=== PATIENT | female | born 1950 | race Caucasian/White ===

== ENCOUNTER 2017-03-31 10:09 | Outpatient (CLI) | payer MEDICARE, BC ==
[2017-03-31 11:43] LABS: Hematocrit 32.8 % (36.0-47.0); Mean Platelet Volume 8.4 fL (7.4-10.4); Red Blood Cell (RBC) Count 3.58 mill/uL (4.20-5.40); White Blood Cell (WBC) Count 10.1 thou/uL (4.8-10.8)
[2017-03-31 11:50] LABS: PTT 25.1 SEC (22.9-36.1); Prothrombin Time 11.8 SEC (12.0-14.7)
[2017-03-31 12:12] LABS: ALT (SGPT) 17 U/L (8-55); AST (SGOT) 18 U/L (5-34); Alkaline Phosphatase 118 U/L (40-150); Anion Gap 12 mmol/L (10-20); BUN (Urea Nitrogen) 32 mg/dL (9.8-20.1); Bilirubin, Total 0.3 mg/dL (0.2-1.2); Calc. Creatinine Clearance 0 mL/min (70-130); Calcium 9.5 mg/dL (7.8-10.44); Carbon Dioxide 23 mmol/L (23-31); Chloride 105 mmol/L (98-107); Cholesterol 221 mg/dl (< 200 Desired); Estimated GFR-MDRD 35; Protein, Total 6.5 g/dL (6.0-8.3)
== END 2017-03-31 10:10 | disposition home or self-care (01) ==
LOC: LABBT 10:09
PROVIDERS: ATTEND Internal Medicine Cardiovascular Disease
DX: Z01.818 Encounter for other preprocedural examination (principal); R07.9 Chest pain, unspecified
CPT/HCPCS: 80053; 80061; 85027; 85610; 85730; 93005; 93010

== ENCOUNTER 2017-04-04 05:42 | Day surgery (SDC) | payer BC, MEDICARE ==
[2017-03-31 10:38] VITALS: BMI 32.9
[2017-04-04] MEDS ORDERED: Nitroglycerin 100MG/250ML BOT 250 ML ONE (07:33)
[2017-04-04] MEDS ORDERED: Heparin 10,000 UNITS/1 ML VIAL ONE (07:33)
[2017-04-04] MEDS ORDERED: Midazolam HCl 2 mg/2 ml Vial ONE (07:44)
[2017-04-04] MEDS ORDERED: Fentanyl 100 MCG/2 ML VIAL ONE (07:44)
[2017-04-04] MEDS ORDERED: Iopamidol 370 76% 100 ML VIAL ONE (16:36)
== END 2017-04-04 11:50 | disposition home or self-care (01) ==
LOC: CCL 05:42
PROVIDERS: ATTEND Internal Medicine Cardiovascular Disease
DX: R07.9 Chest pain, unspecified (principal); R60.9 Edema, unspecified; M79.661 Pain in right lower leg; G47.30 Sleep apnea, unspecified; I10 Essential (primary) hypertension; E11.9 Type 2 diabetes mellitus without complications; E78.5 Hyperlipidemia, unspecified; K21.9 Gastro-esophageal reflux disease without esophagitis; Z79.82 Long term (current) use of aspirin; Z79.4 Long term (current) use of insulin; Z79.899 Other long term (current) drug therapy; Z90.710 Acquired absence of both cervix and uterus; Z98.890 Other specified postprocedural states
CPT/HCPCS: 36416; 93458; 99152; 99153; C1769; J0360; J1644; J2250; J3010

== ENCOUNTER 2018-01-11 14:11 | Emergency (ER) | payer BC, MEDICARE ==
[2018-01-11 16:05] LABS: #Basophils 0.1 thou/uL (0.0-0.2); #Eosinphils 0.4 thou/uL (0.0-0.7); #Lymphocytes 2.2 thou/uL (1.20-3.40); #Neutrophils 7.8 thou/uL (1.40-6.50); %Basophils 0.6 % (0.0-1.0); %Eosinophils 3.1 % (0.0-10.0); %Lymphocytes 19.2 % (21.0-51.0); %Monocytes 8.3 % (0.0-10.0); %Neutrophils 68.8 % (42.0-75.0); Hemoglobin 10.3 g/dL (12.0-16.0); Mean Corpuscular HGB CONC 34.6 g/dL (32.0-36.0); Mean Corpuscular Hemoglobin 31.2 pg (27.0-31.0); Mean Corpuscular Volume 90.2 fL (78.0-98.0); Mean Platelet Volume 8.2 fL (7.4-10.4); Platelet Count 354 thou/uL (130-400); RBC Distribution Width 11.7 % (11.5-14.5); White Blood Cell (WBC) Count 11.3 thou/uL (4.8-10.8)
[2018-01-11 16:27] LABS: ALT (SGPT) 9 U/L (8-55); AST (SGOT) 10 U/L (5-34); Albumin 3.2 g/dL (3.4-4.8); Alkaline Phosphatase 160 U/L (40-150); Anion Gap 15 mmol/L (10-20); BUN (Urea Nitrogen) 42 mg/dL (9.8-20.1); Bilirubin, Total 0.6 mg/dL (0.2-1.2); Calc. Creatinine Clearance 0 mL/min (70-130); Calcium 9.5 mg/dL (7.8-10.44); Carbon Dioxide 20 mmol/L (23-31); Chloride 109 mmol/L (98-107); Estimated GFR-MDRD 18; Globulin 3.2 g/dL (2.4-3.5); Glucose 167 mg/dL (80-115); Potassium 4.6 mmol/L (3.5-5.1); Protein, Total 6.4 g/dL (6.0-8.3); Sodium 139 mmol/L (136-145)
--- NOTE | 2018-01-11 17:22 | ULT ---
LEFT LOWER EXTREMITY DEEP VENOUS DUPLEX EXAM: Indications: Left lower extremity pain and edema. FINDINGS: Deep veins evaluated with color doppler, spectral analysis and compression. Deep veins of the left lower extremity show normal blood flow and compression. IMPRESSION: Negative left lower extremity venous duplex study. No evidence of DVT identified. POS: CASIMIRO
--- NOTE | 2018-01-11 17:23 | RAD ---
LEFT FOOT THREE VIEWS: History: Foot pain. FINDINGS: Prominent enthesophytes in the plantar calcaneus. The tarsals appear intact. Metatarsals and phalange s are intact. Mild degenerative change at the first MTP joint. IMPRESSION: Enthesophytes in the plantar calcaneus. Otherwise no acute osseous abnormality. POS: LELAND
== END 2018-01-11 18:47 | disposition home or self-care (01) ==
LOC: ERS 14:11 → EDUNIT# 14:11 → ERS 18:47
DX: L03.116 Cellulitis of left lower limb (principal); E11.9 Type 2 diabetes mellitus without complications; I10 Essential (primary) hypertension; K21.9 Gastro-esophageal reflux disease without esophagitis; E78.00 Pure hypercholesterolemia, unspecified; Z79.899 Other long term (current) drug therapy; Z79.82 Long term (current) use of aspirin; Z79.4 Long term (current) use of insulin
CPT/HCPCS: 80053; 85025

== ENCOUNTER 2018-02-12 09:13 | Outpatient (CLI) | payer BC, MEDICARE ==
--- NOTE | 2018-02-12 10:55 | ULT ---
BILATERAL RENAL ULTRASOUND COMPLETE: History: 67-year-old female with history of stage IV chronic kidney disease. FINDINGS: There is no identifiable right kidney. The left kidney measures 13.6 x 7.1 x 6.6 cm without evidence for hydronephrosis or perinephric proce ss. The bladder is unremarkable. A left ureteral jet was seen. IMPRESSION: No visualized right kidney. No left renal hydronephrosis. Unremarkable appearing somewhat incompletel y filled bladder. POS: C
== END 2018-02-12 09:14 | disposition home or self-care (01) ==
LOC: ULT 09:13
PROVIDERS: ATTEND Internal Medicine Nephrology
DX: N18.4 Chronic kidney disease, stage 4 (severe) (principal)
CPT/HCPCS: 76770

== ENCOUNTER 2018-10-27 04:39 | Inpatient (IN) | payer MEDICARE, BC ==
[2018-10-27] MEDS ORDERED: Ondansetron PF 4 MG/2 ML Vial ONE (05:15)
[2018-10-27] MEDS ORDERED: Labetalol HCl 100 MG/20 ML VIAL ONE (05:15)
[2018-10-27] MEDS ORDERED: Acetaminophen 500 MG TAB ONE (05:46)
[2018-10-27 06:08] LABS: Hemoglobin 12.5 g/dL (12.0-16.0); Mean Corpuscular HGB CONC 32.7 g/dL (32.0-36.0); Mean Corpuscular Hemoglobin 30.7 pg (27.0-31.0); Mean Corpuscular Volume 93.8 fL (78.0-98.0); Mean Platelet Volume 9.2 fL (7.4-10.4); Platelet Count 404 thou/uL (130-400); RBC Distribution Width 13.4 % (11.5-14.5); Red Blood Cell (RBC) Count 4.06 mill/uL (4.20-5.40)
[2018-10-27 06:13] LABS: Bilirubin Negative (Negative); Blood, Urine Moderate (Negative); Clarity Clear (Clear); Glucose, Urine (Dipstick) 250 mg/dL (Negative); Leukocyte Negative (Negative); Nitrite Negative (Negative); Protein, Urine (Dipstick) > or equal to 300 mg/dL (Neg-Trace); Urobilinogen 0.2 mg/dL (0.2-1.0)
[2018-10-27 06:16] LABS: Band 5 % (5-11); Eosinophils 1 % (0-10); Lymphocytes 10 % (21-51); MDiff Complete? YES; Monocytes 6 % (0-10); Neutrophil 78 % (42-75); Toxic Granulation SLIGHT
[2018-10-27 06:17] LABS: Bacteria/HPF None Seen HPF (None Seen); Hyaline Casts/LPF 0-3 HYALINE CAST LPF (0-3 Hyaline); Squamous Epithelial 0-3 HPF (0-3); WBC/HPF 0-3 HPF (0-3)
[2018-10-27] MEDS ORDERED: Lidocaine 1% PF 5 ML VIAL ONE (06:20)
[2018-10-27 06:24] LABS: ALT (SGPT) 15 U/L (8-55); AST (SGOT) 15 U/L (5-34); Albumin 2.9 g/dL (3.4-4.8); Alkaline Phosphatase 121 U/L (40-150); Anion Gap 17 mmol/L (10-20); BUN (Urea Nitrogen) 56 mg/dL (9.8-20.1); Bilirubin, Total 0.2 mg/dL (0.2-1.2); CK (CPK) 175 U/L (29-168); Calc. Creatinine Clearance 0 mL/min (70-130); Calcium 8.5 mg/dL (7.8-10.44); Carbon Dioxide 16 mmol/L (23-31); Chloride 111 mmol/L (98-107); Estimated GFR-MDRD 7; Glucose 236 mg/dL (80-115); Lipase 53 U/L (8-78); Potassium 4.7 mmol/L (3.5-5.1); Protein, Total 5.9 g/dL (6.0-8.3); Sodium 139 mmol/L (136-145)
[2018-10-27] MEDS ORDERED: Sodium Chloride 0.9% 0 ML ONE (06:45)
[2018-10-27] MEDS ORDERED: cefTRIAXone\\ROCEPHIN 2 GM VIAL ONE (06:45)
--- NOTE | 2018-10-27 08:09 | CT ---
CT HEAD NONCONTRAST: Indication: Headache. FINDINGS: There is no acute intracranial hemorrhage, mass effect, midline shift or ventriculomegaly. Calvarium is intact. No pneumocephalus. Mild scattered paranasal sinus mucosal thickening. IMPRESSION: No acute intracranial hemorrhage or mass effect. POS: KARINA
[2018-10-27 08:10] LABS: CSF Source CSF; Clarity Clear (Clear); Tube # 1
[2018-10-27 08:22] LABS: Color Of CSF Supernatant COLORLESS (Colorless); Tube # 2; Unspun CSF Color COLORLESS (Colorless)
[2018-10-27 08:25] LABS: CSF, Glucose 85 mg/dl (40-70); CSF, Protein 28 mg/dL (15-40)
[2018-10-27 08:26] LABS: CSF Source CSF; Clarity Clear (Clear); RBC Count - Manual 11 /cumm (None Seen); Tube # 4; WBC/NonHematics Count - Manual 0 /cumm (0-5)
[2018-10-27 08:27] LABS: RBC Count - Manual 0 /cumm (None Seen); WBC/NonHematics Count - Manual 0 /cumm (0-5)
--- NOTE | 2018-10-27 08:53 | RAD ---
CHEST ONE VIEW: History: Chronic cough with wheezing. Comparison: 09-22-15 FINDINGS: Heart size is within normal limits. Increased linear and interstitial markings are noted bilaterally which may well be stable from the prior study given less inspiration and portable technique on today' s exam. No confluent lobar pneumonia or significant pleural effusion. IMPRESSION: Mild increased bronchovascular markings bilaterally possibly representing some mild vascular congesti on. No confluent pneumonia. Atherosclerosis of the aorta. POS: TPC
[2018-10-27] MEDS ORDERED: Labetalol HCl 100 MG/20 ML VIAL SLOW IVP PRN (09:21)
[2018-10-27] MEDS ORDERED: hydrALAZINE 20 MG/ML VIAL SLOW IVP PRN (09:25)
[2018-10-27] MEDS ORDERED: Nitroglycerin 2% Ointment 1 INCH/1 GM Packet TOP PRN (09:25)
[2018-10-27] MEDS ORDERED: Metoprolol Tartrate 50 MG TAB PO SCH ×2 (09:30→21:00)
[2018-10-27] MEDS ORDERED: NIFEdipine XL 30 MG TAB PO SCH (09:30)
[2018-10-27] MEDS ORDERED: Sodium Bicarbonate 50 MEQ in Sodium Chloride 0.45% 1,000 ML IV SCH ×2 (09:30→09:31)
[2018-10-27] MEDS ORDERED: NIFEdipine XL 30 MG TAB ONE (09:38)
[2018-10-27] MEDS ORDERED: Metoprolol Tartrate 50 MG TAB ONE (09:38)
--- NOTE | 2018-10-27 12:38 | CON ---
DATE OF CONSULTATION: REASON FOR CONSULTATION: Elevated creatinine. HISTORY OF PRESENT ILLNESS: This is a very pleasant 68-year-old female, who presented to the hospital for evaluation of headache. The patient had elevated blood pressure. The patient has a history of CKD and is followed at the clinic. PAST MEDICAL HISTORY: Hypertension, macular degeneration, GERD, hyperlipidemia, neuropathy, history of heart cath, history of , history of hysterectomy. SOCIAL HISTORY: No alcohol or drug use. FAMILY HISTORY: Negative for ESRD. ALLERGIES: REVIEWED. MEDICATIONS: Home medication list reviewed. Hospital medication reviewed. PHYSICAL EXAMINATION: CONSTITUTIONAL: The patient is awake, alert. VITAL SIGNS: Afebrile. Pulse 69, breathing 16, blood pressure 227/111. GENERAL APPEARANCE AND MENTAL STATUS: Fair. HEAD/NECK: Normocephalic. Atraumatic. EYES: EOMI. No deformity. EARS: Clear. No ulcers. NOSE: Intact. No lesions. MOUTH: Clear. No discharge. THROAT: Clear. No exudate. LUNGS: Clear. No crackles. CARDIAC: S1, S2. No rub. ABDOMEN: Benign. Bowel sounds positive. GENITALIA/RECTUM: Willis absent. BACK/EXTREMITIES: Edema 0+. NEUROLOGICAL: Alert and motor intact. SKIN: LYMPHATICS: LABORATORY DATA: Reviewed. IMPRESSION: Acute kidney injury with chronic kidney disease with hypertensive urgency. We will follow renal function closely. The patient has had progressive renal decline. The patient has ATN. Anemia, stable. Medication based on GFR, appropriate. Metabolic acidosis. Hypertension, we would recommend continuing home medication and titrating blood pressure. I would avoid bicarbonate drip due to elevated blood pressure. Job ID: [id number]
--- NOTE | 2018-10-27 15:23 | ULT ---
US Renal Bilateral STANDARD HISTORY: Acute renal insufficiency. COMPARISON: None. FINDINGS: Real-time imaging of the right and left kidneys were performed. The right kidney is reporte dly absent since . The left kidney measures 13.2 cm. No obstruction or mass. The bladder is incompletely distended at the time of this exam. IMPRESSION: 1. Absent right kidney. 2. No obstruction of the left kidney.
[2018-10-27] MEDS ORDERED: Mometasone Furoate 120 PUFF 220 MCG INH PRN (16:14)
[2018-10-27] MEDS ORDERED: Ondansetron PF 4 MG/2 ML Vial IVP PRN (16:16)
[2018-10-27] MEDS ORDERED: Acetaminophen 500 MG TAB PO PRN (16:16)
[2018-10-27] MEDS ORDERED: Ondansetron ODT 4 MG TAB PO PRN (16:16)
[2018-10-27] MEDS ORDERED: Dextrose 5% in Water 1,000 ML IV PRN (16:17)
[2018-10-27] MEDS ORDERED: HumaLOG 300 UNITS/3 ML VIAL SC PRN (16:17)
[2018-10-27] MEDS ORDERED: Dextrose 50% Abboject 50 ML SYRINGE SLOW IVP PRN (16:17)
--- NOTE | 2018-10-27 23:08 | HP ---
PRIMARY CARE PROVIDER: Linda Dias MD. CHIEF COMPLAINT: Headache. HISTORY OF PRESENT ILLNESS: This is a 68-year-old female, who presented to [facility] Emergency Department initially complaining of severe frontal headache, which began initially on 10/25/2018. The patient states hat the headache resolved spontaneously on 10/25 that woke her up approximately 2:30 in the a.m. on 10/27/2018, localized in the frontal region. The patient denied any nausea or vomiting, but states she was unable to form words or thoughts coherently. The patient initially rated the pain 8/10, but denied any unilateral weakness, visual disturbance, but some photophobia. The patient initially thought she was having a migraine headache, which she does not have a history of suffering from, but became concerned when her symptoms did not jared. The patient states she has been compliant with her chronic blood pressure regimen, but states she has not been able to refill her Levemir for diabetes due to the cost and lack of insurance coverage. The patient denies any recent fall, injury, travel history, cold symptoms, or documented fever. The patient denies any family members with similar symptoms. In the emergency room, the patient underwent evaluation including CT imaging of the brain showing no acute process. Metabolic evaluation [place] [id number] with 78% neutrophils. The patient was also noted with worsening renal function with a creatinine of 5.77 previously noted in 12/2017 at 2.76. The patient states she has been followed by Dr. Ferrara for her chronic kidney disease; however, has not been able to followup consistently due to loss of insurance. In the emergency room, the patient received oral Lopressor and Procardia as well as Rocephin, Tylenol and Zofran. The patient clinically stabilized with supportive management and resumption of blood pressure medications. PAST MEDICAL HISTORY: 1. Hypertension. 2. Macular degeneration. 3. Diabetes mellitus type 2, insulin requiring. 4. Gastroesophageal reflux disease. 5. Hyperlipidemia. 6. Chronic kidney disease stage 3 to 4. 7. Congenital single kidney. PAST SURGICAL HISTORY: 1. Status post cardiac catheterization. 2. Status post section x2. 3. Status post hysterectomy. CURRENT MEDICATIONS: 1. Enteric-coated aspirin 81 mg p.o. daily. 2. Pulmicort Flexhaler one puff inhaled b.i.d. 3. Vitamin D3 2000 units p.o. daily. 4. Lasix 20 mg p.o. b.i.d. 5. Tradjenta 5 mg p.o. q.a.m. 6. Losartan 50 mg p.o. daily. 7. Toprol-XL 100 mg p.o. daily. 8. Omeprazole 20 mg p.o. daily. 9. Coenzyme Q10 200 mg p.o. daily. ALLERGIES: NO KNOWN DRUG ALLERGIES. FAMILY HISTORY: Positive for hypertension and diabetes. SOCIAL HISTORY: The patient is , accompanied by her in the hospital. No current alcohol, tobacco, or illicit drug use. Functional of all activities of daily living. Resides in [place], [place]. REVIEW OF SYSTEMS: CONSTITUTIONAL: Negative for weight loss or gain, ability to conduct usual activities. SKIN: Negative for rash, itching. EYES: Negative for double vision, pain. ENT/MOUTH: Negative for nose bleeding, neck stiffness, pain, tenderness. CARDIOVASCULAR: Negative for palpitations, dyspnea on exertion, orthopnea. RESPIRATORY: Negative for shortness of breath, wheezing, cough, hemoptysis, fever or night sweats. GASTROINTESTINAL: Negative for poor appetite, abdominal pain, heartburn, nausea, vomiting, constipation, or diarrhea. GENITOURINARY: Negative for urgency, frequency, dysuria, nocturia. MUSCULOSKELETAL: Negative for pain, swelling. NEUROLOGIC/PSYCHIATRIC: Negative for anxiety, depression. ALLERGY/IMMUNOLOGIC: Negative for skin rash, bleeding tendency. Otherwise negative except as stated per HPI. PHYSICAL EXAMINATION: VITAL SIGNS: On admission, blood pressure 227/111, pulse 89, respiratory rate is 19, temperature 97.8 degrees Fahrenheit, O2 saturation 95% on room air. GENERAL APPEARANCE: This is a 68-year-old female, alert and oriented x3, pleasant, conversant, in no acute distress. HEENT: Pupils are equal, round, reactive to light and accommodation. Extraocular muscles are intact. No scleral icterus. No conjunctival injection. Nares are patent. OP is clear. Teeth in fair repair. NECK: Supple. No cervical adenopathy. No thyromegaly. No carotid bruits. No JVD appreciated. Cervical spine with full active and passive range of motion. No meningeal signs noted. CHEST: Lungs are clear to auscultation bilaterally. CARDIOVASCULAR: S1-S2 without noted murmur, rub, or gallop. ABDOMEN: Obese, soft, nontender, and nondistended. Bowel sounds are positive in all 4 quadrants. There is no hepatosplenomegaly. No abdominal bruits, no rebound or guarding appreciated. EXTREMITIES: Warm and dry with fair turgor. Pitting edema bilaterally to the knees. Pulses palpable distally at the dorsalis pedis, posterior tibial, and popliteal arteries bilaterally. Capillary refill less than 2 seconds. NEUROLOGIC: Cranial nerves 2 through 12 are grossly intact. No focal or lateralizing signs appreciated. PERTINENT LAB AND X-RAY FINDINGS: Sodium 139, potassium 4.7, chloride 111, CO2 of 16, BUN 56, creatinine 5.77, estimated GFR of 7, glucose 236. Lactic acid level 0.9, calcium 8.5. LFTs within normal limits. Total CK 175. Troponin I negative x1. Lipase 53. CBC showed a white blood cell count of 20, hemoglobin 12.5, hematocrit 38, platelet count 404 with 78% neutrophils. Urinalysis showed positive protein and glucose with moderate blood. CSF culture dated 10/27/2018 showed culture pending. Gram stain without WBCs or organisms. IMAGING: Portable chest x-ray dated 10/27/2018 showed increased bronchovascular markings bilaterally. CT of the brain without contrast showed no acute intracranial process. EKG dated 10/27/2018 by my interpretation shows a sinus mechanism with heart rates in the 90s. Attenuated R-waves noted in the precordial leads. Normal axis. No acute ST-T wave changes appreciated. ASSESSMENT/PLAN: 1. Hypertensive urgency. We will admit to the telemetry unit. Resume home regimen to include metoprolol 100 mg daily and losartan 50 mg daily. Add hydralazine and labetalol intravenously as needed for systolic blood pressure greater than or equal to 170. Check 2D transthoracic echocardiogram for ejection fraction and wall motion abnormalities. 2. Acute kidney injury on chronic kidney disease stage 4. Avoid nephrotoxic agents and limit contrast exposure. Continue intravenous normal saline with sodium bicarbonate at 50 mL/hour. Serial creatinine monitoring. Nephrology consult appreciated. 3. Headache. Suspect secondarily to hypertensive urgency. Continue supportive management. Clinically resolving. 4. Leukocytosis with neutrophilia. Exact etiology is unclear. Await final blood and urine culture results. Hold antibiotic therapy as no specific evidence of focal infectious process. 5. Diabetes mellitus type 2, insulin requiring. Insulin sliding scale for reflexive coverage. Serial Accu-Cheks. ADA diet. Check A1c level in the a.m. Continue Tradjenta 5 mg p.o. q.a.m. 6. Prophylaxis. Sequential compression devices while in bed. Protonix 40 mg p.o. daily. CODE STATUS: Full. Surrogate medical decision maker is patient's spouse. Job ID: [id number]
[2018-10-28 07:28] LABS: Hemoglobin A1c 5.9 % (4.0-6.0)
[2018-10-28 07:40] LABS: Magnesium 1.2 mg/dL (1.6-2.6); Phosphorus 5.9 mg/dL (2.3-4.7)
[2018-10-28 07:44] LABS: Chloride 110 mmol/L (98-107); Potassium 4.6 mmol/L (3.5-5.1); Sodium 137 mmol/L (136-145)
[2018-10-28 07:46] LABS: Glucose 122 mg/dL (80-115)
[2018-10-28 07:47] LABS: Anion Gap 16 mmol/L (10-20); Carbon Dioxide 16 mmol/L (23-31)
[2018-10-28 07:49] LABS: Calc. Creatinine Clearance 13 mL/min (70-130); Estimated GFR-MDRD 7
[2018-10-28 07:50] LABS: BUN (Urea Nitrogen) 59 mg/dL (9.8-20.1)
--- NOTE | 2018-10-28 08:01 | PRG ---
DATE OF SERVICE: 10/28/2018 SUBJECTIVE: This is a 68-year-old female being seen for acute kidney injury. The patient denies any nausea, vomiting, or chest pain. OBJECTIVE: CONSTITUTIONAL: On examination, the patient is awake and alert. VITAL SIGNS: Afebrile, pulse 58, breathing 16, and blood pressure 125/71. GENERAL APPEARANCE AND MENTAL STATUS: Fair. HEAD/NECK: Normocephalic. Atraumatic. EYES: EOMI. No deformity. EARS: Clear. No ulcers. NOSE: Intact. No lesions. MOUTH: Clear. No discharge. THROAT: Clear. No exudate. LUNGS: Clear. No crackles. CARDIAC: S1, S2. No rub. ABDOMEN: Benign. Bowel sounds positive. GENITALIA/RECTUM: Willis absent. BACK/EXTREMITIES: Edema 0+. NEUROLOGICAL: Alert and motor intact. LABORATORY DATA: Labs are pending. ASSESSMENT AND PLAN: 1. Acute kidney injury with chronic kidney disease due to acute tubular necrosis. We will follow renal function. The patient has stage 5 chronic kidney disease with chronic kidney disease, stage 4 and unilateral kidney. 2. Hypertension, stable. 3. Anemia, stable. 4. Medications based on glomerular filtration rate are appropriate. Job ID: [id number]
[2018-10-28 08:15] LABS: Hemoglobin 9.8 g/dL (12.0-16.0)
[2018-10-28] MEDS ORDERED: NIFEdipine XL 30 MG TAB PO SCH (09:00)
[2018-10-28] MEDS: Ubidecarenone 50 MG CAP PO SCH (09:33)
[2018-10-28] MEDS: Alogliptin 6.25 MG TAB PO SCH (09:34)
[2018-10-28] MEDS: Sodium Chloride 0.9% 1,000 ML IV SCH (09:44)
[2018-10-28] MEDS: Aspirin 81 mg Enteric Coated Tablet PO SCH (10:49)
[2018-10-28 13:35] VITALS: BMI 33.7
[2018-10-28] MEDS: NIFEdipine XL 30 MG TAB PO SCH (21:05)
--- NOTE | 2018-10-28 22:29 | PDOC.PN ---
- Subjective Encounter Start Date: 10/28/18 Encounter Start Time: 16:00 Patient seen and examined for JUAN. Headache improving. No CP/SOB. No Oliguria. No new complaints. No overnight events - Objective MAR Reviewed: Yes Vital Signs & Weight: Vital Signs (12 hours) Temp Pulse Resp BP BP Pulse Ox 10/28/18 21:05 70 166/74 H 10/28/18 20:00 99.4 F 78 20 166/74 H 98 10/28/18 18:03 70 10/28/18 17:35 97.9 F 73 18 192/85 H 10/28/18 12:45 97.8 F 70 16 157/72 H Weight Admit Weight 200 lb 7 oz Weight 196 lb 11.2 oz I&O: 10/27/18 10/28/18 10/29/18 06:59 06:59 06:59 Intake Total 240 1220 Output Total 400 500 Balance -160 720 Result Diagrams: 10/28/18 07:04 10/28/18 07:04 Additional Labs: Accuchecks 10/28/18 10/28/18 10/28/18 20:17 16:38 11:05 POC Glucose 136 H 124 H 182 H 10/28/18 05:32 POC Glucose 118 H Radiology Reviewed by me: No (Renal UG - No hydronephrosis) EKG Reviewed by me: Yes (Tele SR) Phys Exam - Physical Examination Constitutional: NAD Respiratory: no wheezing, no rhonchi Cardiovascular: RRR, no rub Gastrointestinal: soft, no distention, positive bowel sounds Musculoskeletal: no edema Neurological: moves all 4 limbs Psychiatric: A&O x 3 Dx/Plan - Plan DVT proph w/SCDs IMPRESSION: JUAN on CKD 4 Absent Rt kidney DM2 HTN urgency HLD Obesity BMI 33.8 Hypomagnesemia Metabolic acidosis GERD PLAN: 1 gm IVPB Magnesium Start IV NS @ 50 ml/hr (I confirmed with Nephro) Add Procardia XL due to uncontrolled HTN Cont Metoprolol Cont Sliding scale/Aloglitin AM labs Microbiology 10/27/18 07:20 Venous blood - Left Arm Blood Culture - Preliminary Specimen has been received and culture in progress. No Growth to date. 10/27/18 07:10 Venous blood - Right Arm Blood Culture - Preliminary Specimen has been received and culture in progress. No Growth to date. 10/27/18 06:35 Spinal Fluid Culture - Pending Body Fluid Culture - Preliminary Laboratory Tests 10/28/18 07:04 Magnesium 1.2 L Review of Systems - Review of Systems Respiratory: SOB with Excertion. negative: Cough, Dry, Shortness of Breath, Hemoptysis, Pleuritic Pain, Sputum, Wheezing Cardiovascular: negative: chest pain, palpitations, orthopnea, paroxysmal nocturnal dyspnea, edema, light headedness, other Gastrointestinal: negative: Nausea, Vomiting, Abdominal Pain, Diarrhea, Constipation, Melena, Hematochezia, Other - Medications/Allergies Allergies/Adverse Reactions: Allergies Allergy/AdvReac Type Severity Reaction Status Date / Time No Known Allergies Allergy Verified 03/31/17 10:37 Medications: Current Medications Acetaminophen (Tylenol) 1,000 mg PO Q6H PRN PRN Reason: Mild Pain (1-3) Alogliptin Benzoate (Alogliptin) 6.25 mg PO QAM [facility] Last Admin: 10/28/18 09:34 Dose: 6.25 mg Aspirin (Ecotrin) 81 mg PO DAILY [facility] Last Admin: 10/28/18 10:49 Dose: 81 mg Cholecalciferol (Vitamin D3) 2,000 units PO DAILY [facility] Last Admin: 10/28/18 09:33 Dose: 2,000 units Coenzyme Q10 (Coenzyme Q10) 200 mg PO DAILY [facility] Last Admin: 10/28/18 09:33 Dose: 200 mg Dextrose/Water (Dextrose 50%) 25 gm SLOW IVP PRN PRN PRN Reason: Hypoglycemia Glucagon (Glucagon) 1 mg IM PRN PRN PRN Reason: Hypoglycemia Hydralazine HCl (Apresoline) 10 mg SLOW IVP Q4H PRN PRN Reason: SBP Greater Than 180 Last Admin: 10/28/18 18:03 Dose: 10 mg Dextrose/Water (D5w) 1,000 mls @ 0 mls/hr IV .Q0M PRN PRN Reason: Hypoglycemia Sodium Chloride (Normal Saline 0.9%) 1,000 mls @ 50 mls/hr IV .Q20H [facility] Last Admin: 10/28/18 09:44 Dose: 1,000 mls Insulin Human Lispro (Humalog) 0 units SC .MILD SLIDING SCALE PRN PRN Reason: Mild Correctional Scale Insulin Human Lispro (Humalog) 0 units SC .BEDTIME SLIDING SC PRN PRN Reason: Bedtime Correctional Scale Labetalol HCl (Normodyne) 10 mg SLOW IVP Q4H PRN PRN Reason: Systolic BP > 180 Metoprolol Succinate (Toprol Xl) 100 mg PO DAILY [facility] Last Admin: 10/28/18 09:33 Dose: 100 mg Mometasone Furoate (Asmanex Twisthaler) 1 puff INH DAILYPRN PRN PRN Reason: SOB &/or Wheezing Nifedipine (Procardia Xl) 30 mg PO BID [facility] Last Admin: 10/28/18 21:05 Dose: 30 mg Nitroglycerin (Nitro-Bid 2% Ointment) 0.5 inch TOP Q8HR PRN PRN Reason: SBP Greater Than 180 Ondansetron HCl (Zofran Odt) 4 mg PO Q6H PRN PRN Reason: Nausea/Vomiting Ondansetron HCl (Zofran) 4 mg IVP Q6H PRN PRN Reason: Nausea/Vomiting Pantoprazole Sodium (Protonix) 40 mg PO DAILY [facility] Last Admin: 10/28/18 09:34 Dose: 40 mg Sodium Chloride (Flush - Normal Saline) 10 ml IVF Q12HR [facility] Last Admin: 10/28/18 21:05 Dose: 10 ml Sodium Chloride (Flush - Normal Saline) 10 ml IVF PRN PRN PRN Reason: Saline Flush
[2018-10-29 06:18] LABS: #Basophils 0.1 thou/uL (0.0-0.2); #Eosinphils 0.6 thou/uL (0.0-0.7); #Lymphocytes 2.3 thou/uL (1.20-3.40); #Monocytes 0.9 thou/uL (0.11-0.59); #Neutrophils 6.1 thou/uL (1.40-6.50); %Eosinophils 6.5 % (0.0-10.0); %Lymphocytes 22.9 % (21.0-51.0); %Monocytes 8.5 % (0.0-10.0); Hemoglobin 10.2 g/dL (12.0-16.0); Mean Corpuscular HGB CONC 32.1 g/dL (32.0-36.0); Mean Corpuscular Hemoglobin 30.2 pg (27.0-31.0); Mean Corpuscular Volume 94.3 fL (78.0-98.0); Mean Platelet Volume 9.4 fL (7.4-10.4); Platelet Count 298 thou/uL (130-400); RBC Distribution Width 12.4 % (11.5-14.5); Red Blood Cell (RBC) Count 3.37 mill/uL (4.20-5.40)
[2018-10-29] MEDS: Sodium Chloride 0.9% 1,000 ML IV SCH ×2 (06:27→09:49)
[2018-10-29 06:41] LABS: Albumin 2.5 g/dL (3.4-4.8); Anion Gap 14 mmol/L (10-20); BUN (Urea Nitrogen) 59 mg/dL (9.8-20.1); BUN/Creatinine Ratio 9.44; Calc. Creatinine Clearance 12 mL/min (70-130); Calcium 8.1 mg/dL (7.8-10.44); Carbon Dioxide 18 mmol/L (23-31); Chloride 109 mmol/L (98-107); Estimated GFR-MDRD 7; Glucose 116 mg/dL (80-115); Magnesium 1.6 mg/dL (1.6-2.6); Sodium 136 mmol/L (136-145)
[2018-10-29] MEDS: Ubidecarenone 50 MG CAP PO SCH (09:48)
[2018-10-29] MEDS: NIFEdipine XL 30 MG TAB PO SCH ×2 (09:49→21:33)
[2018-10-29] MEDS: Alogliptin 6.25 MG TAB PO SCH (09:49)
[2018-10-29] MEDS: Aspirin 81 mg Enteric Coated Tablet PO SCH (09:49)
[2018-10-29] MEDS: HumaLOG 300 UNITS/3 ML VIAL SC PRN (12:13)
--- NOTE | 2018-10-29 12:32 | PRG ---
DATE OF SERVICE: SUBJECTIVE: A 68-year-old female being seen for acute kidney injury due to chronic diabetic disease. Denied nausea, vomiting, or chest pain. OBJECTIVE: CONSTITUTIONAL: The patient is awake and alert. VITAL SIGNS: Afebrile, pulse 72, breathing 16, blood pressure 144/66. GENERAL APPEARANCE AND MENTAL STATUS: Fair. HEAD/NECK: Normocephalic. Atraumatic. EYES: EOMI. No deformity. EARS: Clear. No ulcers. NOSE: Intact. No lesions. MOUTH: Clear. No discharge. THROAT: Clear. No exudate. LUNGS: Clear. No crackles. CARDIAC: S1, S2. No rub. ABDOMEN: Benign. Bowel sounds positive. GENITALIA/RECTUM: Willis absent. BACK/EXTREMITIES: Edema 0+. NEUROLOGICAL: Alert and motor intact. SKIN: LYMPHATICS: LABORATORY DATA: Labs show hemoglobin 10.2, creatinine 6.52. ASSESSMENT: 1. Acute kidney injury with chronic kidney disease due to progressive diabetic disease. No urgent indication for dialysis. 2. Metabolic acidosis. 3. Hypertension, stable. 4. Anemia, stable. 5. Recommend bicarbonate 325 t.i.d. Medication based on GFR. We will stop alogliptin as it has some renal side effects. The patient has a single kidney. Job ID: [id number]
--- NOTE | 2018-10-29 14:26 | PRG ---
DATE OF SERVICE: 10/29/2018 SUBJECTIVE: The patient is seen and examined at the bedside. She did her walking this morning with some assistance. Her appetite is fair. She moves her bowels daily. OBJECTIVE: VITAL SIGNS: Blood pressure is 165/73, temperature is 98.3, pulse is 76, respiratory rate is 16, O2 saturation is 96% on room air. HEENT: Her head is atraumatic and normocephalic. Eyes are PERRLA. Sclerae are nonicteric. Oral mucosa is moist. NECK: Supple. LUNGS: Clear. HEART: S1 and S2 normal. No S3. No S4. ABDOMEN: Soft, nontender. Bowel sounds are present. No organomegaly. EXTREMITIES: No clubbing or cyanosis. There is 1 to 2+ peripheral edema, similar on both lower extremities. NEUROLOGICAL: She is alert and oriented x4. There are no any motor deficits. There is decreased sensation over both feet. Cranial nerves are intact. LABORATORY DATA: Labs showed white count of 10.0, hemoglobin 10.2, hematocrit 31.8, platelet count is 298,000. Sodium 136, potassium 5.0, chloride 109, CO2 of 18, BUN 59, creatinine 6.25. Glycemia is ranging from 116 to 218, albumin 2.5, and phosphorus 6.0. Microbiology, two blood cultures negative. Spinal fluid culture, no wbc's, no rbc's, no organisms seen growth on CSF. IMPRESSION: 1. Acute on chronic kidney injury, stage 4 to 5. 2. Diabetes mellitus, type 2 with peripheral neuropathy. 3. Hypertension with hypertensive urgency. 4. Hyperlipidemia. 5. Metabolic acidosis secondary to kidney injury. 6. Hypomagnesemia. 7. Gastroesophageal reflux disease. 8. Obesity. DISCUSSION: The patient was started on Procardia last night. Her blood pressure is better, but still not in good range, but this is too early to make any changes in her regimen. We will continue Procardia XL 30 mg twice a day. Continue metoprolol for the blood pressure control. Her diabetes seems to be in a relatively well control. Her sitagliptin was stopped, and we will have to most likely intensify her regimen with insulin and continue gentle hydration and keep close followup on her kidney function daily. Job ID: [id number]
[2018-10-30] MEDS: Sodium Chloride 0.9% 1,000 ML IV SCH (04:44)
[2018-10-30] MEDS: NIFEdipine XL 30 MG TAB PO SCH (09:19)
[2018-10-30] MEDS: Ubidecarenone 50 MG CAP PO SCH (09:19)
[2018-10-30] MEDS: Aspirin 81 mg Enteric Coated Tablet PO SCH (09:20)
[2018-10-30 09:37] LABS: Anion Gap 14 mmol/L (10-20); BUN (Urea Nitrogen) 58 mg/dL (9.8-20.1); Calc. Creatinine Clearance 13 mL/min (70-130); Calcium 8.4 mg/dL (7.8-10.44); Carbon Dioxide 17 mmol/L (23-31); Chloride 110 mmol/L (98-107); Estimated GFR-MDRD 7; Glucose 130 mg/dL (80-115); Potassium 4.8 mmol/L (3.5-5.1); Sodium 136 mmol/L (136-145)
--- NOTE | 2018-10-30 10:38 | PRG ---
DATE OF SERVICE: 10/30/2018 SUBJECTIVE: This is a 68-year-old female, being seen for acute kidney injury. The patient denied nausea, vomiting, or chest pain. OBJECTIVE: CONSTITUTIONAL: The patient is awake and alert. VITAL SIGNS: Afebrile, pulse 97, breathing 16, and blood pressure 143/68. GENERAL APPEARANCE AND MENTAL STATUS: Fair. HEAD/NECK: Normocephalic. Atraumatic. EYES: EOMI. No deformity. EARS: Clear. No ulcers. NOSE: Intact. No lesions. MOUTH: Clear. No discharge. THROAT: Clear. No exudate. LUNGS: Clear. No crackles. CARDIAC: S1, S2. No rub. ABDOMEN: Benign. Bowel sounds positive. GENITALIA/RECTUM: Willis absent. BACK/EXTREMITIES: Edema 0+. NEUROLOGICAL: Alert and motor intact. SKIN: LYMPHATICS: LABORATORY DATA: Labs show creatinine is pending. ASSESSMENT: 1. Chronic kidney disease, stage 5 with acute kidney injury due to acute tubular necrosis, following renal function. . 2. Hypertension, stable. 3. Anemia, stable. 4. Living with unilateral kidney. 5. Hyperphosphatemia, start Renvela 2 pills with every meal. Job ID: [id number]
[2018-10-30] MEDS: HumaLOG 300 UNITS/3 ML VIAL SC PRN (12:50)
--- NOTE | 2018-10-30 15:32 | PRG ---
DATE OF SERVICE: 10/30/2018 SUBJECTIVE: The patient is seen and examined at the bedside. She has started making some urine after she was started on IV fluids. Her appetite is fair. OBJECTIVE: VITAL SIGNS: Blood pressure is 141/72. The previous blood pressure measurements elevated, it was between 150 and 170s. Her pulse is 78, temperature 97.8, respiratory rate is 18, O2 saturation is 95% on room air. HEENT: Her head is atraumatic, normal cephalic. Eyes are PERRLA. Sclerae are nonicteric. Oral mucosa is moist. NECK: Supple. LUNGS: Breath sounds somewhat diminished at both bases. No crackles. No rales. HEART: S1, S2. No S3. No S4. ABDOMEN: Soft, nontender. EXTREMITIES: 2+ peripheral edema on both lower extremities, especially around the ankles. NEUROLOGICAL EXAMINATION: She is alert and oriented x4. There is no any motor or sensory deficit. Cranial nerves are intact. LABORATORY DATA: Labs showed white count of 10.0, hemoglobin 10.2, hematocrit 31.8, platelet count is 298. Sodium of 136, potassium 4.8, chloride 110, CO2 17, BUN 58, creatinine 6.11. Glycemia is ranging from 104 to 218, calcium 8.4. Microbiology, two blood cultures negative. IMPRESSION: 1. Acute on chronic kidney injury stage 5. 2. Diabetes mellitus type 2 with peripheral neuropathy. 3. Hypertension with hypertensive urgency. 4. Hyperlipidemia. 5. Metabolic acidosis secondary to kidney injury. 6. Hypomagnesemia. 7. Gastroesophageal reflux disease. 8. Obesity. DISCUSSION: We are going to go up on her Procardia to 60 mg twice a day since her blood pressure is not well controlled. I am going to follow up her kidney function closely. Her glycemia is relatively well controlled. We will continue IV fluids, which is 50 mL/h and according to Nephrology recommendation, and Dr. Ferrara will make decision whether she is going to go for dialysis or this can be postponed. Job ID: [id number]
[2018-10-30] MEDS: Sodium Bicarbonate Tab 325 MG TAB PO SCH ×2 (15:56→20:16)
[2018-10-30] MEDS: NIFEdipine XL 60 MG TAB PO SCH (20:15)
--- NOTE | 2018-10-30 21:52 | ULT ---
BILATERAL UPPER EXTREMITY ULTRASOUND FOR VEIN MAPPING 10/30/18 HISTORY: End-stage renal disease. Dialysis access. COMPARISON: None. TECHNIQUE: Black scale, color flow, Doppler imaging with spectral waveform analysis performed of the left and rig ht upper extremity venous system. FINDINGS: RIGHT UPPER EXTREMITY BRACHIAL ARTERY: 4 mm RADIAL ARTERY: 1.3 mm ULNAR ARTERY: 1.7 mm CEPHALIC VEIN Proximal Humerus: 2.8 mm Mid Humerus: 2.3 mm Distal Humerus: 2.1 mm Antecubital Fossa: There is a clot starting at the antecubital fossa and extending to the forearm. BASILIC VEIN Proximal Humerus: 6.0 mm Mid Humerus: 1.3 mm Distal Humerus: 1.9 mm Antecubital Fossa: 2.1 mm Proximal Forearm: 1.3 mm Mid Forearm: Not visualized Distal Forearm: Not visualized LEFT UPPER EXTREMITY BRACHIAL ARTERY: 3.8 mm RADIAL ARTERY: 2.3 mm ULNAR ARTERY: 1.5 mm CEPHALIC VEIN Proximal Humerus: 3.4 mm Mid Humerus: 2.0 mm Distal Humerus: 1.2 mm Antecubital Fossa: 2.1 mm Proximal Forearm: 1.9 mm Mid Forearm: 1.1 mm Distal Forearm: 1.1 mm BASILIC VEIN Proximal Humerus: 1.9 mm The remainder of the basilic vein is not appreciated. IMPRESSION: Upper extremity vein mapping as above. POS: CASIMIRO
--- NOTE | 2018-10-31 00:33 | HP ---
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 She was admitted for hypertensive crisis and seen by Dr. Ferrara, noted to have chronic kidney disease, which does not seem to be improving. She does not need to start dialysis right away. Her creatinine is 6.1, BUN 58, potassium 4.8 and GFR 7. Hemoglobin A1c is 5.9. I have been asked to see regarding dialysis access. She has an IV in the right hand. Ultrasound vein mapping of both arms has been ordered and is pending. Dr. Ferrara has asked me to see her regarding establishment of hemodialysis access. She is right handed. She does have some visual impairment secondary to macular degeneration and she does not feel that she would be able to manage her peritoneal dialysis well. She prefers hemodialysis at this time. Plan and recommendation would be to obtain ultrasound vein mapping in both arms and plan placement of a primary fistula in her right or left arm pending vein mapping. She at this point, hopes to schedule this as an outpatient in a future date and she plans to call my office to arrange that. She hopes to go home in the near future. ALLERGIES: NONE. SOCIAL HISTORY: Tobacco, none. Alcohol, none. MEDICATIONS: At home; 1. Metoprolol 100 mg daily. 2. Lasix 20 mg b.i.d. 3. Tradjenta 5 mg a day. 4. Pulmicort inhaler b.i.d. p.r.n. 5. Losartan 50 mg daily. 6. Aspirin 81 mg a day. 7. CoQ10 200 mg daily. 8. Omeprazole 20 mg a.m. In the hospital; 1. She is on Protonix p.o. 2. Procardia XL. 3. Nifedipine 60 mg b.i.d. 4. Nitroglycerin p.r.n. 5. Toprol 100 mg daily. 6. Sliding scale insulin. 7. Aspirin 81 mg a day. 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 She has had two C sections. She has had a total abdominal hysterectomy, bilateral salpingo-oophorectomy. She had a colonoscopy, she recalls no more than 7 years ago. PAST MEDICAL HISTORY: Hypertension, insulin-dependent diabetes mellitus, congenital unilateral kidney. In 2017, cardiac catheterization when she had minimal disease and no intervention was required. REVIEW OF SYSTEMS: Ten-point noncontributory. FAMILY HISTORY: Noncontributory. PHYSICAL EXAMINATION: VITAL SIGNS: Height 5 feet 4 inches, 200 pounds, 34 BMI, 97.8, 72, 18, 139/72. HEAD, EARS, EYES, NOSE AND THROAT: Unremarkable. LUNGS: Clear to auscultation. CARDIAC: Regular rate and rhythm without murmur or gallop. ABDOMEN: Soft and nontender. No masses. No hernias. EXTREMITIES: IV right hand, palpable radial pulses. Extremities are unremarkable. No ankle edema. LABORATORY DATA: As noted above. ASSESSMENT/PLAN: 1. Chronic kidney disease, end-stage renal disease. Dr. Ferrara states that she does not need dialysis right away, but needs to have dialysis established as soon as possible for future use. Due to her macular degeneration, she is not a good candidate for peritoneal dialysis at this time, but she might consider that later. At this time, she would like to proceed with placement of primary AV fistula. We have ordered ultrasound vein mapping in both arms, have educated her and advised her to decline any attempts at accessing her for blood draws above her wrist. She is right handed. We will try to use her nondominant arm for dialysis access, but we will await vein mapping. We would plan this as an outpatient under regional anesthesia or general morning of surgery. She understands risks and benefits, understands she may need a second operation to finalize functioning fistula. 2. Diabetes mellitus, insulin dependent. 3. Hypertension. 4. Status post cardiac catheterization, 2017, normal. No cardiac symptoms currently. Colonoscopy up to date, no more than 7 years ago. Job ID: [id number]
[2018-10-31] MEDS: Sodium Chloride 0.9% 1,000 ML IV SCH ×2 (04:27→18:23)
[2018-10-31] MEDS: Sodium Bicarbonate Tab 325 MG TAB PO SCH ×3 (10:14→20:56)
[2018-10-31] MEDS: Aspirin 81 mg Enteric Coated Tablet PO SCH (10:14)
[2018-10-31] MEDS: NIFEdipine XL 60 MG TAB PO SCH ×2 (10:14→20:56)
[2018-10-31] MEDS: Ubidecarenone 50 MG CAP PO SCH (10:14)
--- NOTE | 2018-10-31 11:24 | PRG ---
DATE OF SERVICE: 10/31/2018 SUBJECTIVE: Patient was seen and examined at bedside and overnight events noted. Patient denies any shortness of breath or chest pain or palpitation. No history of nausea or vomiting or diarrhea or fever or chills or cramps. OBJECTIVE: GENERAL: This is a well-built female, in no apparent distress. VITAL SIGNS: Temperature 98.7. Heart rate 72. Respiratory rate 18. Blood pressure 137/66. HEENT: Atraumatic, normocephalic. Oral mucosa is moist NECK: Supple. CARDIOVASCULAR: S1, S2 heard. Rate and rhythm regular. RESPIRATORY: Clear to auscultation. GASTROINTESTINAL: Abdomen is soft. MUSCULOSKELETAL: No tenderness. No edema. DERMATOLOGIC: No skin rash. NEUROLOGIC: Alert and awake and oriented X3. No focal neurologic deficits. Moving all the extremities. PSYCHIATRIC: Mood and affect normal. LABORATORY DATA: Not done today. ASSESSMENT AND PLAN: 1. Chronic kidney disease stage 5 with acute kidney injury, better. 2. Hypertension. 3. Anemia. 4. . Avoid Nephrotoxins . Job ID: [id number]
--- NOTE | 2018-10-31 13:16 | PRG ---
DATE OF SERVICE: 10/31/2018 SUBJECTIVE: The patient is seen and examined at the bedside. She is feeling better today. I do not have much complaints to offer. OBJECTIVE: VITAL SIGNS: Blood pressure is 173/77, pulse is 76, temperature is 97.8, respirations 18, and O2 saturation is 95% on room air. HEENT: Her head is atraumatic and normocephalic. Eyes are PERRLA. Sclerae are nonicteric. Oral mucosa is moist. NECK: Supple. LUNGS: Breath sounds are clear bilaterally. HEART: S1 and S2 normal. No S3. No S4. ABDOMEN: Soft, obese, and nontender. EXTREMITIES: 1+ peripheral edema on both lower extremities. NEUROLOGICAL: She is alert and oriented x4. There is no any motor or sensory deficit present. Cranial nerves are intact. DIAGNOSTIC DATA: Glycemia is ranging from 104 to 161. No other labs. Microbiology, two blood cultures negative as before. IMPRESSION: 1. Acute on chronic renal failure, stage 5. 2. Diabetes mellitus, type 2 with peripheral neuropathy. 3. Hypertension with hypertensive urgency. 4. Hyperlipidemia. 5. Metabolic acidosis secondary to kidney injury. 6. Hypomagnesemia. 7. Gastroesophageal reflux disease. 8. Obesity. PLAN: We still have some problem with blood pressure control despite of using Procardia 60 mg twice a day yesterday and had marking ultrasound on her upper extremities for Dr. Garcias, who is going to do fistula on her for the future use. This is going to be done next week. In the meantime, Nephrology will make decision about the continuation of her IV fluids. Also, Nephrology is going to make decision about lab work since we are trying to avoid poking her upper extremity, avoiding any damage to the vasculature, which will be used in the future for IV hemodialysis access. Job ID: [id number]
[2018-11-01] MEDS: Aspirin 81 mg Enteric Coated Tablet PO SCH (08:48)
[2018-11-01] MEDS: Sodium Bicarbonate Tab 325 MG TAB PO SCH ×3 (08:48→21:53)
[2018-11-01] MEDS: Ubidecarenone 50 MG CAP PO SCH (08:48)
[2018-11-01] MEDS: NIFEdipine XL 60 MG TAB PO SCH ×2 (08:49→21:52)
--- NOTE | 2018-11-01 11:12 | PRG ---
DATE OF SERVICE: 11/01/2018 SUBJECTIVE: Patient was seen and examined at bedside and overnight events noted. Patient denies any shortness of breath or chest pain or palpitation. No history of nausea or vomiting or diarrhea or fever or chills or cramps. OBJECTIVE: GENERAL: This is a well built female, in no apparent distress. VITAL SIGNS: Temperature 97.6. Heart rate 72. Respiratory rate 18. Blood pressure 133/61. HEENT: Atraumatic, normocephalic. Oral mucosa is moist NECK: Supple. CARDIOVASCULAR: S1, S2 heard. Rate and rhythm regular. RESPIRATORY: Clear to auscultation. GASTROINTESTINAL: Abdomen is soft. MUSCULOSKELETAL: No tenderness. No edema. DERMATOLOGIC: No skin rash. NEUROLOGIC: Alert and awake and oriented X3. No focal neurologic deficits. Moving all the extremities. PSYCHIATRIC: Mood and affect normal. LABORATORY DATA: Not done today. ASSESSMENT AND PLAN: 1. Chronic kidney disease, stage 5, with worsening labs. Repeat labs in the morning. 2. Acute kidney injury. 3. Hypertension. 4. Anemia. 5. Edema. Plan to have access placed. Surgery consult placed. Job ID: [id number]
[2018-11-01] MEDS: Sodium Chloride 0.9% 1,000 ML IV SCH (12:21)
--- NOTE | 2018-11-01 16:00 | PRG ---
DATE OF SERVICE: 11/01/2018 SUBJECTIVE: The patient is seen and examined at the bedside. She is feeling significantly better. She just took a shower. She has fair appetite. OBJECTIVE: VITAL SIGNS: Blood pressure is 162/69, temperature is 97.7, pulse is 74, respirations 16, and O2 saturation is 96% on room air. HEENT: Head is atraumatic, normocephalic. Eyes are PERRLA. Sclerae are nonicteric. Oral mucosa is moist. NECK: Supple. LUNGS: Breath sounds somewhat diminished at both bases. HEART: S1 and S2 normal. No S3. No S4. ABDOMEN: Soft, obese. EXTREMITIES: 1 to 2+ peripheral edema similar bilaterally. NEUROLOGICAL: She is alert and oriented x4. There are no any motor deficits. LABORATORY DATA: Labs showed glycemia from 120 to 195. IMPRESSION: 1. Acute on chronic renal failure, stage 5. 2. Diabetes mellitus, type 2 with peripheral neuropathy. 3. Hypertension with hypertensive urgency. 4. Hyperlipidemia. 5. Metabolic acidosis secondary to kidney injury. 6. Hypomagnesemia, corrected. 7. Gastroesophageal reflux disease. 8. Obesity. PLAN: Nephrology is trying to get IV hemodialysis access. General surgeon is consulted and we are going to continue the rest of the regimen as it was. Job ID: [id number]
[2018-11-02 06:08] LABS: Anion Gap 13 mmol/L (10-20); BUN (Urea Nitrogen) 55 mg/dL (9.8-20.1); Calc. Creatinine Clearance 13 mL/min (70-130); Calcium 7.7 mg/dL (7.8-10.44); Carbon Dioxide 14 mmol/L (23-31); Chloride 113 mmol/L (98-107); Estimated GFR-MDRD 7; Glucose 108 mg/dL (80-115); Potassium 4.4 mmol/L (3.5-5.1); Sodium 136 mmol/L (136-145)
[2018-11-02] MEDS: Ubidecarenone 50 MG CAP PO SCH (08:23)
[2018-11-02] MEDS: Sodium Bicarbonate Tab 325 MG TAB PO SCH ×4 (08:24→21:12)
[2018-11-02] MEDS: NIFEdipine XL 60 MG TAB PO SCH ×3 (08:24→21:12)
[2018-11-02] MEDS: Aspirin 81 mg Enteric Coated Tablet PO SCH (08:24)
[2018-11-02] MEDS: Sodium Chloride 0.9% 1,000 ML IV SCH (08:25)
[2018-11-02] MEDS ORDERED: Lidocaine 1% PF 5 ML VIAL ONE (09:20)
[2018-11-02] MEDS ORDERED: Heparin 10,000 UNITS/ 10 ML VIAL ONE (09:20)
[2018-11-02] MEDS ORDERED: PROPOFOL 200 MG/20 ML VIAL ONE (09:20)
[2018-11-02] MEDS ORDERED: PHENYLEPHRINE-NS 100 MCG/ML 10 ML SYRINGE ONE (09:20)
[2018-11-02] MEDS ORDERED: Bupivacaine HCl 0.5%/Epinephrine 1:200,000/PF 30 ml Vial ONE (09:30)
[2018-11-02] MEDS ORDERED: Iothalamate Meglumine 60% 50 ML VIAL FS ONE (09:30)
[2018-11-02] MEDS ORDERED: Lidocaine 2% PF 5 ML VIAL ONE (09:30)
[2018-11-02] MEDS ORDERED: Heparin 5,000 UNITS/ML VIAL ONE (09:30)
[2018-11-02] MEDS ORDERED: Sodium Chloride 0.9% 0 ML ONE (09:30)
[2018-11-02] MEDS ORDERED: Protamine Sulfate 50 MG/5 ML VIAL ONE (09:30)
[2018-11-02] MEDS ORDERED: Fentanyl 100 MCG/2 ML VIAL ONE ×2 (10:12→10:14)
[2018-11-02] MEDS ORDERED: Midazolam HCl 2 mg/2 ml Vial ONE (10:12)
[2018-11-02] MEDS ORDERED: Famotidine/PF 20 mg/2ml Vial ONE (10:14)
[2018-11-02] MEDS ORDERED: PROPOFOL 0 ML ONE (10:14)
[2018-11-02] MEDS ORDERED: Propofol 500 MG/50 ML VIAL ONE (10:14)
--- NOTE | 2018-11-02 11:11 | PRG ---
DATE OF SERVICE: 11/02/2018 SUBJECTIVE: Patient was seen and examined at bedside and overnight events noted. Patient denies any shortness of breath or chest pain or palpitation. No history of nausea or vomiting or diarrhea or fever or chills or cramps. OBJECTIVE: GENERAL: This is a well-built female, in no apparent distress. VITAL SIGNS: Temperature 97.7. Heart rate 82. Respiratory rate . Blood pressure 141/64. HEENT: Atraumatic, normocephalic. Oral mucosa is moist NECK: Supple. CARDIOVASCULAR: S1, S2 heard. Rate and rhythm regular. RESPIRATORY: Clear to auscultation. GASTROINTESTINAL: Abdomen is soft. MUSCULOSKELETAL: No tenderness. No edema. DERMATOLOGIC: No skin rash. NEUROLOGIC: Alert and awake and oriented X3. No focal neurologic deficits. Moving all the extremities. PSYCHIATRIC: Mood and affect normal. LABORATORY DATA: Potassium 4.4, BUN is 55, creatinine is 5.9. ASSESSMENT AND PLAN: 1. Chronic kidney disease stage 5. Plan to have access placed today. 2. Acute kidney injury, stable. 3. Hypertension, stable. 4. Anemia. Monitor hemoglobin. 5. Edema. Stop IV fluids. We will continue to follow. No acute indication for dialysis. Plan to have access placed. Job ID: [id number]
[2018-11-02] MEDS ORDERED: Promethazine HCl 25 MG/ML VIAL IM PRN (12:01)
[2018-11-02] MEDS ORDERED: Ondansetron HCl/PF 4 MG/2 ML Vial IVP PRN (12:01)
[2018-11-02] MEDS ORDERED: Promethazine HCl 25 MG/ML VIAL SLOW IVP PRN (12:01)
[2018-11-02] MEDS ORDERED: traMADol HCl 50 MG TAB PO PRN (12:37)
[2018-11-02 14:35] LABS: HBSAB Concentration 1.92 mIU/mL; HBSAg Index 0.32 S/CO (0-0.99); Hep B Surf AB Non-Reactive (NonReactive); Hep B Surf Ag Non-Reactive S/CO (NonReactive)
--- NOTE | 2018-11-02 14:50 | OP ---
DATE OF PROCEDURE: 11/02/2018 PREOPERATIVE DIAGNOSIS: Chronic kidney disease, not yet started dialysis, poor veins by ultrasound vein mapping. POSTOPERATIVE DIAGNOSIS: Chronic kidney disease, not yet started dialysis, but excellent veins found in the antecubital fossa. PROCEDURE PERFORMED: Exploration of left antecubital fossa, found the veins to be excellent, wound closed and left Mickie fistula performed. ANESTHESIA: Regional TIVA. DESCRIPTION OF PROCEDURE: The patient was taken to the operating room, where under regional anesthesia, left upper extremity was prepared with ChloraPrep and draped in routine fashion. Ultrasound vein mapping suggested poor veins. Thus, a longitudinal incision was made in the proximal volar forearm below the antecubital fossa, carried down to skin and subcutaneous tissue and an excellent vein identified. For this reason, an incision was made in the left wrist and a good cephalic vein identified, dissected free. The patient was given 6000 units of heparin intravenously. After adequate circulation time, the radial artery which had been dissected free, was a good caliber, was mobilized and then, the cephalic vein mobilized. Branches were divided between clips and 4-0 silk ties and vein on the hand side clamped and divided, and ligated with 3-0 silk ties. Vein spatulated and interrogated with coronary dilators, passing the coronary dilators from a 2 mm to a 3.5 mm coronary dilator throughout its length without restriction. The vein was then flushed with heparinized saline solution. An atraumatic bulldog clamp applied. Longitudinal arteriotomy was made sharply, elongated with Burnett scissors for 2.5 cm anastomosis between the end cephalic vein and side radial artery using continuous suture of 6-0 Prolene. After completion of the anastomosis, there was a good Doppler signal with the venous outflow. The patient tolerated the procedure well. Subcutaneous tissue was approximated with 3-0 Monocryl, skin with subdermal 4-0 Monocryl and [place] glue applied. Job ID: [id number]
--- NOTE | 2018-11-02 16:44 | PDOC.PN ---
- Subjective Encounter Start Date: 11/02/18 Encounter Start Time: 16:40 Subjective: f/u for ESRD s/p LUE AV fistula placement. Feels groggy after anesthesia. - Objective MAR Reviewed: Yes Vital Signs & Weight: Vital Signs (12 hours) Temp Pulse Resp BP Pulse Ox 11/02/18 16:28 82 11/02/18 16:00 97.5 F L 73 17 159/67 H 95 11/02/18 08:00 97.7 F 82 18 141/64 H 95 Weight Admit Weight 200 lb 7 oz Weight 208 lb I&O: 11/01/18 11/02/18 11/03/18 06:59 06:59 06:59 Intake Total 480 1840 Output Total 1100 1300 Balance -620 540 Result Diagrams: 10/29/18 05:28 11/02/18 04:32 Additional Labs: Accuchecks 11/02/18 11/01/18 11/01/18 05:45 20:19 16:49 POC Glucose 115 H 131 H 137 H 11/01/18 11:07 POC Glucose 146 H Laboratory Tests 11/02/18 13:40 Hep Bs Antigen Non-Reactive Hep Bs Antibody Non-Reactive EKG Reviewed by me: Yes (Tele -SR) Phys Exam - Physical Examination Constitutional: NAD HEENT: PERRLA, sclera anicteric, oral pharynx no lesions Neck: no nodes, no JVD, supple, full ROM Respiratory: no wheezing, no rales, no rhonchi, clear to auscultation bilateral S1, S2 Cardiovascular: RRR, no significant murmur, no rub, gallop Gastrointestinal: soft, non-tender, no distention, positive bowel sounds Musculoskeletal: pulses present Neurological: normal sensation, moves all 4 limbs Psychiatric: A&O x 3 Skin: normal turgor, cap refill <2 seconds Dx/Plan (1) Acute kidney injury superimposed on CKD Code(s): N17.9 - ACUTE KIDNEY FAILURE, UNSPECIFIED; N18.9 - CHRONIC KIDNEY DISEASE, UNSPECIFIED Status: Acute Comment: s/p LUE AV fistula placement, no current plans for acute HD, outpt monitoring (2) CKD (chronic kidney disease), stage V Code(s): N18.5 - CHRONIC KIDNEY DISEASE, STAGE 5 Status: Chronic Comment: See above (3) HTN (hypertension) Code(s): I10 - ESSENTIAL (PRIMARY) HYPERTENSION Status: Chronic Qualifiers: Hypertension type: essential hypertension Qualified Code(s): I10 - Essential (primary) hypertension Comment: Overall trend improved, continue current regimen, may need additional titration as outpt (4) Anemia in CKD (chronic kidney disease) Code(s): N18.9 - CHRONIC KIDNEY DISEASE, UNSPECIFIED; D63.1 - ANEMIA IN CHRONIC KIDNEY DISEASE Status: Chronic Comment: Stable currently, likely Epo as outpt (5) Diabetes mellitus, type II, insulin dependent Code(s): E11.9 - TYPE 2 DIABETES MELLITUS WITHOUT COMPLICATIONS; Z79.4 - LEAD INFRASTRUCTURE ARCHITECT (CURRENT) USE OF INSULIN Status: Chronic Comment: ISS, Tradjenta - Plan plan discussed w/ family, protective services social worker, out of bed/ambulate, DVT proph w/SCDs Stable currently -: Continue Nifedipine, Metoprolol -: Pain control as clinically indicated post AV fistula -: OOB/ambulate -: AM lab: BMP, CBC * Likely home in am
[2018-11-03 05:34] LABS: Anion Gap 14 mmol/L (10-20); BUN (Urea Nitrogen) 55 mg/dL (9.8-20.1); Calc. Creatinine Clearance 14 mL/min (70-130); Calcium 8.4 mg/dL (7.8-10.44); Carbon Dioxide 16 mmol/L (23-31); Chloride 114 mmol/L (98-107); Estimated GFR-MDRD 7; Glucose 106 mg/dL (80-115); Potassium 4.7 mmol/L (3.5-5.1); Sodium 139 mmol/L (136-145)
[2018-11-03 07:32] VITALS: TEMP 97.6
[2018-11-03] MEDS: NIFEdipine XL 60 MG TAB PO SCH (09:01)
[2018-11-03] MEDS: Ubidecarenone 50 MG CAP PO SCH (09:01)
[2018-11-03] MEDS: Sodium Bicarbonate Tab 325 MG TAB PO SCH (09:01)
[2018-11-03] MEDS: Aspirin 81 mg Enteric Coated Tablet PO SCH (09:02)
[2018-11-03 11:41] VITALS: BP 165/70
--- NOTE | 2018-11-03 14:55 | PRG ---
DATE OF SERVICE: 11/03/2018 SUBJECTIVE: Patient was seen and examined at bedside and overnight events noted. Patient denies any shortness of breath or chest pain or palpitation. No history of nausea or vomiting or diarrhea or fever or chills or cramps. OBJECTIVE: GENERAL: This is a well-built female, in no apparent distress. VITAL SIGNS: Temperature 97.6. Heart rate 75. Respiratory rate . Blood pressure HEENT: Atraumatic, normocephalic. Oral mucosa is moist NECK: Supple. CARDIOVASCULAR: S1, S2 heard. Rate and rhythm regular. RESPIRATORY: Clear to auscultation. GASTROINTESTINAL: Abdomen is soft. MUSCULOSKELETAL: No tenderness. No edema. DERMATOLOGIC: No skin rash. NEUROLOGIC: Alert and awake and oriented X3. No focal neurologic deficits. Moving all the extremities. PSYCHIATRIC: Mood and affect normal. LABORATORY DATA: Potassium 4.7, BUN is 55, creatinine is 5.9. ASSESSMENT AND PLAN: 1. Chronic kidney disease, stage 5, status post fistula placement. Advised to follow with Dr. Ferrara in one week. 2. Acute kidney injury, stable. 3. Hypertension. 4. Anemia. 5. Edema. We will follow. The patient was advised to follow up with the clinic in one week. Job ID: [id number]
[2018-11-03 15:12] LABS: Band 2 % (5-11); Hemoglobin 9.5 g/dL (12.0-16.0); Large Platelets SLIGHT; Lymphocytes 11 % (21-51); MDiff Complete? YES; Mean Corpuscular HGB CONC 32.2 g/dL (32.0-36.0); Mean Corpuscular Hemoglobin 31.2 pg (27.0-31.0); Mean Corpuscular Volume 96.8 fL (78.0-98.0); Mean Platelet Volume 9.7 fL (7.4-10.4); Monocytes 7 % (0-10); Neutrophil 80 % (42-75); Platelet Count 294 thou/uL (130-400); Platelet Morphology Comment Appears Adequate; RBC Distribution Width 12.8 % (11.5-14.5); Red Blood Cell (RBC) Count 3.04 mill/uL (4.20-5.40); White Blood Cell (WBC) Count 10.3 thou/uL (4.8-10.8)
--- NOTE | 2018-11-04 04:14 | DIS ---
DATE OF ADMISSION: 10/27/2018 DATE OF DISCHARGE: 11/03/2018 DISCHARGE DIAGNOSES: 1. Acute kidney injury on chronic kidney disease stage 5. 2. Hypertension, stable. 3. Anemia and chronic kidney disease. 4. Diabetes mellitus type 2, insulin dependent with diabetic nephropathy. 5. Metabolic acidosis secondary to chronic kidney disease stage 5. CONSULTATIONS: 1. Dr. Fulton and Dr. Ferrara with Nephrology Service. 2. Dr. Garcias with General Surgery Service. PERTINENT LAB AND X-RAY FINDINGS: Creatinine ranged between 5.77 to 6.25, estimated GFR 7, hemoglobin A1c 5.9, lactic acid level 0.9, phosphorus ranging between 5.9 to 6.0, magnesium level ranging between 1.2 to 1.6. CBC showed a white blood cell count ranging between 10.0 to 20.0, hemoglobin ranging between 9.8 to 12.5. Hepatitis B surface antigen and antibody nonreactive on 11/02/2018. Blood cultures x2 dated 10/27/2018 showed no growth at 5 days. CSF fluid culture dated 10/27/2018, no growth at 5 days. Portable chest x-ray dated 10/27/2018 showed prominent bronchovascular markings bilaterally consistent with mild vascular congestion. CT of the brain without contrast dated 10/27/2018 showed no acute intracranial process. HOSPITAL COURSE: The patient was initially admitted after complaints of severe headache and hypertensive urgency. The patient was initially placed on hydralazine and labetalol intravenously, and resumed on metoprolol. 2D transthoracic echocardiogram with ejection fraction of 55% to 60%. The patient was also noted with acute kidney injury in the context of known stage 4, now stage 5 disease. The patient was evaluated by the Nephrology Service for consideration of initiating hemodialysis. The patient received IV fluids and serial monitoring of creatinine showing overall stabilization with estimated GFR at 7 throughout the hospital stay. The patient underwent left upper extremity AV fistula placement in preparation for future hemodialysis; however, did not require acute hemodialysis. The patient's blood pressure did improve overall with titration of her blood pressure regimen. The patient may need additional titration on an ongoing basis after discharge. Overall, the patient did remain clinically stable throughout the hospital course with telemetry monitoring showing sinus mechanism. The patient tolerated regular oral intake, voiding appropriately, and has been ambulatory. I have examined the patient at the time of discharge and discussed followup instructions. The patient verbalized understanding and agreement, ready for discharge on 11/03/2018. DISCHARGE MEDICATIONS: 1. Enteric-coated aspirin 81 mg p.o. daily. 2. Pulmicort Flexhaler one puff inhaled b.i.d. 3. Vitamin D3 2000 units p.o. daily. 4. Losartan 50 mg p.o. daily, hold until evaluated by Nephrology Service. 5. Toprol-XL 100 mg p.o. daily. 6. Omeprazole 20 mg p.o. q.a.m. 7. Coenzyme Q10 200 mg p.o. daily. 8. Nifedipine XL 60 mg p.o. b.i.d. 9. Sodium bicarbonate 650 mg p.o. t.i.d. FOLLOWUP: The patient may follow up with her primary care provider, Dr. Linda Dias, within 7 days of discharge. The patient will follow up with Dr. Sher Ferrara within 3 to 5 days after discharge. The patient will follow up with Dr. Jean Marie Garcias in 3 to 4 weeks. CONDITION ON DISCHARGE: Fair. ACTIVITY: Ad-joaquina. DIET: ADA and renal. CODE STATUS: Full. DISPOSITION: Home, 11/03/2018. Total time preparing and coordinating discharge, 33 minutes. Job ID: [id number]
== END 2018-11-03 13:09 | disposition home or self-care (01) | DRG 673 ==
LOC: SCSER 04:39 → ERHOLD 07:36 → 2NO 12:27
PROVIDERS: ADMIT Internal Medicine; ATTEND Internal Medicine
PROC: 031C0ZF Bypass Left Radial Artery to Lower Arm Vein, Open Approach (ICD-10-PCS; principal; 2018-11-02)
DX: I12.0 Hypertensive chronic kidney disease with stage 5 chronic kidney disease or end stage renal disease (principal); N17.0 Acute kidney failure with tubular necrosis; N18.6 End stage renal disease; E87.2 Acidosis; E11.22 Type 2 diabetes mellitus with diabetic chronic kidney disease; I16.0 Hypertensive urgency; E66.9 Obesity, unspecified; K21.9 Gastro-esophageal reflux disease without esophagitis; E78.00 Pure hypercholesterolemia, unspecified; E11.40 Type 2 diabetes mellitus with diabetic neuropathy, unspecified; H35.30 Unspecified macular degeneration; E83.42 Hypomagnesemia; E11.51 Type 2 diabetes mellitus with diabetic peripheral angiopathy without gangrene; D72.829 Elevated white blood cell count, unspecified; D63.1 Anemia in chronic kidney disease; E83.39 Other disorders of phosphorus metabolism; Z68.33 Body mass index [BMI] 33.0-33.9, adult; Z79.82 Long term (current) use of aspirin; Z79.899 Other long term (current) drug therapy; Z79.4 Long term (current) use of insulin; Z90.710 Acquired absence of both cervix and uterus
CPT/HCPCS: 36415; 36416; 62270; 70450; 71045; 76770; 80048; 80053; 80069; 81003; 81015; 82550; 82945; 83036; 83605; 83690; 83735; 84100; 84157; 84484; 85007; 85014; 85018; 85025; 85027; 86706; 87040; 87070; 87205; 87340; 89051; 93005; 93306; 93970; 96365; 96375; G0365; J0360; J0670; J0690; J0696; J1644; J2001; J2250; J2405; J2704; J2720; J3010; J3475; J3490; Q0162; Q9961; S0028

== ENCOUNTER 2019-02-09 12:52 | Inpatient (IN) | payer MEDICARE, BC ==
[2019-02-09 14:59] LABS: #Basophils 0.1 thou/uL (0.0-0.2); #Eosinphils 0.9 thou/uL (0.0-0.7); #Lymphocytes 2.3 thou/uL (1.20-3.40); #Monocytes 0.8 thou/uL (0.11-0.59); #Neutrophils 7.9 thou/uL (1.40-6.50); %Basophils 0.5 % (0.0-1.0); %Eosinophils 7.3 % (0.0-10.0); %Lymphocytes 19.1 % (21.0-51.0); %Monocytes 6.8 % (0.0-10.0); %Neutrophils 66.3 % (42.0-75.0); Hemoglobin 11.3 g/dL (12.0-16.0); Mean Corpuscular HGB CONC 32.9 g/dL (32.0-36.0); Mean Corpuscular Hemoglobin 30.3 pg (27.0-31.0); Mean Corpuscular Volume 92.3 fL (78.0-98.0); Mean Platelet Volume 8.6 fL (7.4-10.4); Platelet Count 449 thou/uL (130-400); RBC Distribution Width 12.5 % (11.5-14.5); Red Blood Cell (RBC) Count 3.71 mill/uL (4.20-5.40); White Blood Cell (WBC) Count 11.9 thou/uL (4.8-10.8)
--- NOTE | 2019-02-09 15:01 | RAD ---
PORTABLE CHEST 1 VIEW: DATE: 02/09/2019. TIME: 2:32 p.m. HISTORY: Abdominal pain, shortness of breath. FINDINGS/IMPRESSION: Comparison is made with the exam of 10/27/2018. A right pleural effusion with adjacent atelectatic change/consolidation is seen. The heart size is n ormal. No pneumothoraces are seen. The left lung is clear. POS: OFF
[2019-02-09 15:21] LABS: ALT (SGPT) 9 U/L (8-55); AST (SGOT) 10 U/L (5-34); Albumin 2.9 g/dL (3.4-4.8); Alkaline Phosphatase 126 U/L (40-150); Anion Gap 15 mmol/L (10-20); BUN (Urea Nitrogen) 54 mg/dL (9.8-20.1); Bilirubin, Total 0.3 mg/dL (0.2-1.2); Calc. Creatinine Clearance 0 mL/min (70-130); Calcium 8.9 mg/dL (7.8-10.44); Carbon Dioxide 17 mmol/L (23-31); Chloride 111 mmol/L (98-107); Estimated GFR-MDRD 5; Globulin 3.1 g/dL (2.4-3.5); Glucose 93 mg/dL (80-115); Lipase 24 U/L (8-78); Potassium 4.3 mmol/L (3.5-5.1); Sodium 139 mmol/L (136-145)
[2019-02-09 15:40] LABS: HBSAB Concentration 1.39 mIU/mL; HBSAg Index 0.23 S/CO (0-0.99); Hep B Core Total Ab Non-Reactive (NonReactive); Hep B Core Total Index 0.05 S/CO (0-0.79); Hep B Surf AB Non-Reactive (NonReactive); Hep B Surf Ag Non-Reactive S/CO (NonReactive); Hep C IgG Ab Non-Reactive (NonReactive); Hep C Index 0.05 S/CO (0-0.79)
[2019-02-09] MEDS ORDERED: Zolpidem Tartrate 5 MG TAB PO PRN (16:21)
[2019-02-09] MEDS ORDERED: Dextrose 50% Abboject 50 ML SYRINGE SLOW IVP PRN (16:21)
[2019-02-09] MEDS ORDERED: HYDROcodone/Acetaminophen 5/325 mg Tablet PO PRN (16:21)
[2019-02-09] MEDS ORDERED: Ondansetron ODT 4 MG TAB PO PRN (16:21)
[2019-02-09] MEDS ORDERED: HumaLOG 300 UNITS/3 ML VIAL SC PRN (16:21)
[2019-02-09] MEDS ORDERED: Dextrose 5% in Water 1,000 ML IV PRN (16:21)
[2019-02-09] MEDS ORDERED: Acetaminophen 325 MG TAB PO PRN (16:21)
[2019-02-09] MEDS ORDERED: hydrALAZINE 20 MG/ML VIAL SLOW IVP PRN (16:28)
[2019-02-09] MEDS ORDERED: Labetalol HCl 100 MG/20 ML VIAL SLOW IVP PRN (16:28)
--- NOTE | 2019-02-09 17:16 | HP ---
PRIMARY CARE PROVIDER: Linda Dias MD [employer]IANCE MANAGER: Linnette Fulton MD HISTORY OF PRESENT ILLNESS: The patient with a history of diabetes mellitus type 2, progressive renal failure, presents with progressive fatigue, nausea, p.m. emesis. No blood in her stool. No blood in her emesis. No diarrhea. No abdominal pain. PAST MEDICAL HISTORY: Pertinent for diabetes mellitus type 2, insulin dependent with chronic kidney disease; hypertension; dyslipidemia; gastroesophageal reflux disease. CURRENT MEDICATIONS: 1. Metformin 1000 mg twice a day. 2. Furosemide 20 mg twice a day. 3. Omeprazole 10 mg a day. 4. Pulmicort Flexhaler one puff daily. 5. Aspirin 81 mg a day. 6. Coenzyme Q10 of 200 mg a day. 7. Vitamin D3 of 2000 units a day. 8. Nifedipine 10 mg a day. 9. Sodium bicarbonate 650 mg po daily. ALLERGIES: NO KNOWN DRUG ALLERGIES. PAST SURGICAL HISTORY: Pertinent for cardiac cath, hysterectomy, x2. She has had an AV fistula placed in her left antecubital fossa in October of this year. FAMILY HISTORY: Pertinent for hypertension and diabetes in multiple members. SOCIAL HISTORY: . Full code. , next of kin. No alcohol or tobacco. REVIEW OF SYSTEMS: GENERAL: No headaches, dizziness, or fainting. EYES: No double vision, blurred vision, or flashing lights. EARS, NOSE, AND THROAT: No ear pain or drainage. No nasal bleeding. No trouble swallowing. CARDIAC: No pressure, chest pain, orthopnea, paroxysmal nocturnal dyspnea. RESPIRATORY: Dry cough at time. Mild dyspnea on exertion. No asthma or wheezing. GASTROINTESTINAL: See present illness. GENITOURINARY: She still makes urine. No hematuria. MUSCULOSKELETAL: Occasional swelling in her legs. No pain or swelling in her joints or muscles. NEUROLOGICAL: No strokes, seizures, or focal weakness. PSYCHIATRIC: No anxiety or depression. SKIN: No bruising, bleeding, or rash. HEME/LYMPH: No tender or swollen lymph nodes in underarms, neck, or groin. PHYSICAL EXAMINATION: GENERAL: She is alert, pleasant lady with at bedside, oriented. VITAL SIGNS: Blood pressure was 181/81, pulse 78, respirations 18, and temperature 98.2. HEAD, EYES, EARS, NOSE, AND THROAT: Pupils are equal and round. Extraocular movements intact. Sclerae are white. Tympanic membranes clear. Nose is clear. Oral mucous membranes are wet. Dental hygiene is good. NECK: No jugular venous distention, adenopathy, or thyromegaly. CHEST: Clear to auscultation and percussion. HEART: Regular rate and rhythm. First and second heart sounds are clear. There are no appreciated murmurs, gallops, or rubs. ABDOMEN: Soft. No masses. No rebound. No hepatosplenomegaly. Bowel sounds present. No bruits. EXTREMITIES: Reveal trace edema with no cyanosis or clubbing. PULSES: She has a good thrill over an AV fistula in the left upper arm. SKIN: Warm and dry without bruises or rash. HEME/LYMPH: No tender or swollen lymph nodes in axilla, inguinal, or cervical area. No petechial hemorrhages in her mucous membranes or nail beds. NEUROLOGIC: Cranial nerves 2 through 12 intact. Deep tendon reflexes, significantly reduced diffusely. Moves all extremities. DIAGNOSTIC STUDIES: Chest x-ray reviewed by myself, significant right pleural effusion. No cardiomegaly. No CHF or infiltrate. EKG is pending, we will review when available. LABORATORY DATA: CBC; white count 11.9, hemoglobin 11.3, and platelet count 449,000. Comprehensive metabolic profile; liver function tests normal, creatinine 7.75, BUN 54. Sodium and potassium are normal. CO2 is decreased at 17. BNP is 371.5. ADMITTING DIAGNOSES: 1. Uremic syndrome. 2. End-stage renal disease, requiring hemodialysis for uremic syndrome, acidosis , and probable volume overload. 3. Diabetes mellitus type 2 with complication of end-stage renal disease. 4. Metabolic acidosis. 5. Hypertension. 6. Dyslipidemia. PLAN: 1. Selected home medicines. 2. Consult Dr. Fulton for initiation of hemodialysis, this is scheduled to start this afternoon. 3. Accu-Cheks, sliding scale. 4. No metformin. 5. P.r.n. Apresoline and labetalol as needed for blood pressure control in the initiation of hemodialysis. Job ID: [id number] MTDD
[2019-02-09] MEDS ORDERED: Mometasone Furoate 30 PUFF 220 MCG INH PRN (18:30)
[2019-02-09] MEDS ORDERED: Sodium Bicarbonate Tab 325 MG TAB PO SCH (21:00)
[2019-02-09] MEDS ORDERED: Tuberculin PPD 0.1 ML VIAL I-DERMAL SCH (21:00)
[2019-02-09] MEDS: NIFEdipine XL 60 MG TAB PO SCH (22:09)
[2019-02-09 22:55] VITALS: BMI 31.2
--- NOTE | 2019-02-10 02:41 | CON ---
DATE OF CONSULTATION: 02/09/2019 CONSULTING PHYSICIAN: Dr. Brown. REASON FOR CONSULTATION: End-stage renal disease evaluation. REASON FOR ADMISSION: Abnormal labs. HISTORY OF PRESENT ILLNESS: A 68-year-old female with history of type 2 diabetes, hypertension, came to the hospital with nausea, vomiting, abnormal labs. The patient does follow with Dr. Ferrara, was seen in the clinic and the patient was being prepared for starting dialysis and today was seemed appropriate to sent to the hospital and was sent to the hospital. No fever or chills. No chest pain or palpitation reported. No shortness of breath. The patient does have swelling. PAST MEDICAL HISTORY: Positive for type 2 diabetes, hypertension, hyperlipidemia, GERD. PAST SURGICAL HISTORY: Dialysis access placement, cardiac cath, hysterectomy. HOME MEDICATIONS: 1. Metformin. 2. Furosemide. 3. Omeprazole. 4. Pulmicort. 5. Aspirin. 6. Coenzyme Q10. 7. Vitamin D3. 8. Nifedipine. 9. Sodium bicarb. ALLERGIES: NO KNOWN DRUG ALLERGIES. SOCIAL HISTORY: No smoking, alcohol, or illicit drugs. FAMILY HISTORY: Positive for hypertension. REVIEW OF SYSTEMS: CONSTITUTIONAL: Negative for weight loss or gain, ability to conduct usual activities. SKIN: Negative for rash, itching. EYES: Negative for double vision, pain. ENT/MOUTH: Negative for nose bleeding, neck stiffness, pain, tenderness. CARDIOVASCULAR: Negative for palpitations, dyspnea on exertion, orthopnea. RESPIRATORY: Negative for shortness of breath, wheezing, cough, hemoptysis, fever or night sweats. GASTROINTESTINAL: Negative for poor appetite, abdominal pain, heartburn, nausea, vomiting, constipation, or diarrhea. GENITOURINARY: Negative for urgency, frequency, dysuria, nocturia. MUSCULOSKELETAL: Negative for pain, swelling. NEUROLOGIC/PSYCHIATRIC: Negative for anxiety, depression. ALLERGY/IMMUNOLOGIC: Negative for skin rash, bleeding tendency. PHYSICAL EXAMINATION: GENERAL: This is a well-built female, in no apparent distress. VITAL SIGNS: Temperature 98.2, pulse 78, respiratory rate 18, blood pressure 181/81. HEENT: Atraumatic, normocephalic. Oral mucosa is moist. NECK: Supple. CV: S1 and S2, rate and rhythm regular. RESPIRATORY: Clear. GASTROINTESTINAL: Abdomen is soft. MUSCULOSKELETAL: 2 to 3+ edema. DERMATOLOGIC: No skin rash. NEUROLOGIC: Alert and awake. PSYCHIATRIC: Mood and affect normal. LABORATORY DATA: Hemoglobin is 11.3. Potassium 4.3, bicarb is 17, BUN is 54, and creatinine is 7.7. ASSESSMENT AND PLAN: 1. End-stage renal disease. Plan to start dialysis. We will have Case Management consult. We will check PPD skin test. We will check dialysis order set. The patient noted to have a fistula and Dr. Garcias okayed it and plan is to use fistula with small gauge needle and up titrate as needed. 2. Anemia, mild. 3. Edema, remove fluid with dialysis. 4. Hypoalbuminemia. 5. History of diabetic nephropathy. 6. Hypertension, stable. We will remove fluid with dialysis. Plan is to start dialysis as tolerated. We will start on incremental dose of dialysis as tolerated. We will have Case Management consult for outpatient placement. All this plan was explained to the patient and her family and voiced understanding and all the questions answered. No further concerns or questions raised. Thank you for the consult. We will follow the case along with you. Job ID: [id number]
[2019-02-10 05:53] LABS: Anion Gap 14 mmol/L (10-20); BUN (Urea Nitrogen) 41 mg/dL (9.8-20.1); Calc. Creatinine Clearance 12 mL/min (70-130); Calcium 8.2 mg/dL (7.8-10.44); Carbon Dioxide 19 mmol/L (23-31); Chloride 111 mmol/L (98-107); Estimated GFR-MDRD 7; Glucose 86 mg/dL (80-115); Potassium 3.6 mmol/L (3.5-5.1); Sodium 140 mmol/L (136-145)
--- NOTE | 2019-02-10 08:26 | PDOC.HOSPP ---
- Subjective Encounter Date: 02/10/19 Encounter Time: 08:23 Subjective: feels improved post HD, no nausea, etc - Objective Vital Signs & Weight: Vital Signs (12 hours) Temp Pulse Resp BP BP Pulse Ox 02/10/19 07:38 98.0 F 88 18 150/71 H 93 L 02/10/19 05:29 98.1 F 86 18 134/70 94 L 02/10/19 00:00 98.5 F 90 18 126/69 95 02/09/19 22:09 85 175/78 H Weight Weight 181 lb 14.4 oz I&O: 02/09/19 02/10/19 02/11/19 06:59 06:59 06:59 Intake Total 600 Balance 600 Result Diagrams: 02/09/19 14:45 02/10/19 04:54 Additional Labs: Accuchecks 02/10/19 02/09/19 05:16 20:43 POC Glucose 84 80 ROS - Medication Medications: Active Medications Generic Name Dose Route Start Last Admin Trade Name Freq PRN Reason Stop Dose Admin Nifedipine 60 mg 02/09/19 21:00 02/09/19 22:09 Procardia Xl PO 60 mg BID RAFAELA Administration - Exam awake alert Neck: no JVD Heart: RRR, no murmur Respiratory: CTAB Gastrointestinal: soft, normal bowel sounds Extremities: no edema Hosp A/P (1) Uremia Code(s): N19 - UNSPECIFIED KIDNEY FAILURE Status: Acute (2) ESRD needing dialysis Code(s): N18.6 - END STAGE RENAL DISEASE; Z99.2 - DEPENDENCE ON RENAL DIALYSIS Status: Acute (3) DM type 2 causing CKD stage 5 Code(s): E11.22 - TYPE 2 DIABETES MELLITUS W DIABETIC CHRONIC KIDNEY DISEASE; N18.5 - CHRONIC KIDNEY DISEASE, STAGE 5 Status: Acute (4) Pleural effusion Code(s): J90 - PLEURAL EFFUSION, NOT ELSEWHERE CLASSIFIED Status: Acute (5) HTN (hypertension) Code(s): I10 - ESSENTIAL (PRIMARY) HYPERTENSION Status: Chronic Qualifiers: Hypertension type: essential hypertension Qualified Code(s): I10 - Essential (primary) hypertension - Plan cont HD selected home meds accu/ss/ etc will need rpt CXR in 1-2 days to monitor pleural effusion
[2019-02-10] MEDS: NIFEdipine XL 60 MG TAB PO SCH ×2 (09:07→20:50)
[2019-02-10] MEDS: Aspirin 81 mg Enteric Coated Tablet PO SCH (09:07)
[2019-02-10] MEDS: Ubidecarenone 50 MG CAP PO SCH (09:08)
[2019-02-10] MEDS: Ferrous Sulfate 325 MG TAB PO SCH (09:13)
[2019-02-10] MEDS: Sodium Bicarbonate Tab 325 MG TAB PO SCH ×2 (09:13→20:50)
[2019-02-10] MEDS ORDERED: Lidocaine 4% Cream 5 GM TUBE w/ Tegaderm TOP PRN (09:15)
--- NOTE | 2019-02-10 15:50 | PRG ---
DATE OF SERVICE: 02/10/2019 SUBJECTIVE: Patient was seen and examined at bedside and overnight events noted. Patient denies any shortness of breath or chest pain or palpitation. No history of nausea or vomiting or diarrhea or fever or chills or cramps. OBJECTIVE: GENERAL: This is a well-built female, in no apparent distress. VITAL SIGNS: Temperature 98.2. Pulse 84. Respiratory rate 16. Blood pressure 133/74. HEENT: Atraumatic, normocephalic. Oral mucosa is moist NECK: Supple. CARDIOVASCULAR: S1, S2 heard. Rate and rhythm regular. RESPIRATORY: Clear to auscultation. GASTROINTESTINAL: Abdomen is soft. MUSCULOSKELETAL: No tenderness. No edema. DERMATOLOGIC: No skin rash. NEUROLOGIC: Alert and awake and oriented X3. No focal neurologic deficits. Moving all the extremities. PSYCHIATRIC: Mood and affect normal. LABORATORY DATA: Potassium is 3.3, BUN is 41, and creatinine is 6.0. ASSESSMENT AND PLAN: 1. End-stage renal disease. Continue on dialysis as tolerated. 2. Anemia. 3. Edema. 4. Hypoalbuminemia. 5. Diabetic nephropathy. Plan to continue on dialysis as tolerated. Job ID: [id number]
[2019-02-11 06:59] LABS: Anion Gap 13 mmol/L (10-20); BUN (Urea Nitrogen) 35 mg/dL (9.8-20.1); Calc. Creatinine Clearance 13 mL/min (70-130); Carbon Dioxide 24 mmol/L (23-31); Chloride 107 mmol/L (98-107); Estimated GFR-MDRD 8; Glucose 106 mg/dL (80-115); Potassium 3.7 mmol/L (3.5-5.1); Sodium 140 mmol/L (136-145)
[2019-02-11] MEDS: Aspirin 81 mg Enteric Coated Tablet PO SCH (08:26)
[2019-02-11] MEDS: Sodium Bicarbonate Tab 325 MG TAB PO SCH (08:26)
[2019-02-11] MEDS: Ferrous Sulfate 325 MG TAB PO SCH (08:27)
[2019-02-11] MEDS: NIFEdipine XL 60 MG TAB PO SCH ×2 (08:27→20:25)
[2019-02-11] MEDS: Ubidecarenone 50 MG CAP PO SCH (10:26)
--- NOTE | 2019-02-11 10:39 | PRG ---
DATE OF SERVICE: 02/11/2019 SUBJECTIVE: Patient was seen and examined at bedside and overnight events noted. Patient denies any shortness of breath or chest pain or palpitation. No history of nausea or vomiting or diarrhea or fever or chills or cramps. OBJECTIVE: GENERAL: This is an obese female, in no apparent distress. VITAL SIGNS: Temperature 97.2. Heart rate 82. Respiratory rate 18. Blood pressure 135/73. HEENT: Atraumatic, normocephalic. Oral mucosa is moist NECK: Supple. CARDIOVASCULAR: S1, S2 heard. Rate and rhythm regular. RESPIRATORY: Clear to auscultation. GASTROINTESTINAL: Abdomen is soft. MUSCULOSKELETAL: No tenderness. No edema. DERMATOLOGIC: No skin rash. NEUROLOGIC: Alert and awake and oriented X3. No focal neurologic deficits. Moving all the extremities. PSYCHIATRIC: Mood and affect normal. LABORATORY DATA: Potassium is 3.7, BUN is 35, creatinine is 5.6. ASSESSMENT AND PLAN: 1. End-stage renal disease. Continue on dialysis as tolerated Friday, Friday, and Friday. 2. Dialysis access issues seems like a fistula is not maturing. Also, the patient would like to have PD catheter. I did talk with Dr. Garcias. He is going to look into the case and decide further. We will plan for dialysis tomorrow. 3. Edema, better. 4. Diabetic nephropathy. 5. Hypoalbuminemia. Tolerating dialysis well, having some access issues. We will have surgery check on fistula today. Job ID: [id number]
--- NOTE | 2019-02-11 11:54 | PDOC.HOSPP ---
- Subjective Encounter Date: 02/11/19 Encounter Time: 08:15 Subjective: Patient seen and examined. No new complaints. No overnight events - Objective Vital Signs & Weight: Vital Signs (12 hours) Temp Pulse Resp BP BP Pulse Ox 02/11/19 08:32 93 L 02/11/19 08:27 83 135/73 02/11/19 07:22 97.2 F L 83 18 135/73 93 L Weight Admit Weight 181 lb 14.4 oz Weight 181 lb 14.4 oz I&O: 02/10/19 02/11/19 02/12/19 06:59 06:59 06:59 Intake Total 600 800 Output Total 2000 Balance 600 -1200 Result Diagrams: 02/09/19 14:45 02/11/19 06:21 Additional Labs: Accuchecks 02/11/19 02/10/19 02/10/19 04:33 20:25 16:52 POC Glucose 114 H 150 H 117 H 02/10/19 14:16 POC Glucose 88 ROS - Review of Systems ENT: denies: ear pain, ear discharge, nose pain, nose discharge, nose congestion , mouth pain, mouth swelling, throat pain, throat swelling, other Respiratory: denies: cough, dry, shortness of breath, hemoptysis, SOB with excertion, pleuritic pain, sputum, wheezing, other Cardiovascular: denies: chest pain, palpitations, orthopnea, paroxysmal noc. dyspnea, edema, light headedness, other Gastrointestinal: denies: nausea, vomitting, abdominal pain, diarrhea, constipation, melena, hematochezia, other Genitourinary: denies: dysuria, frequency, incontinence, hematuria, retention, other Musculoskeletal: denies: neck pain, shoulder pain, arm pain, back pain, hand pain, leg pain, foot pain, other - Medication Medications: Active Medications Generic Name Dose Route Start Last Admin Trade Name Freq PRN Reason Stop Dose Admin Aspirin 81 mg 02/10/19 09:00 02/11/19 08:26 Ecotrin PO 81 mg DAILY RAFAELA Administration Cholecalciferol 2,000 units 02/10/19 09:00 02/11/19 08:26 Vitamin D3 PO 2,000 units DAILY RAFAELA Administration Coenzyme Q10 200 mg 02/10/19 09:00 02/11/19 10:26 Coenzyme Q10 PO 200 mg DAILY RAFAELA Administration Ferrous Sulfate 325 mg 02/10/19 09:00 02/11/19 08:27 Feosol PO 325 mg DAILY RAFAELA Administration Metoprolol Succinate 100 mg 02/10/19 09:00 02/11/19 08:27 Toprol Xl PO 100 mg DAILY RAFAELA Administration Nifedipine 60 mg 02/09/19 21:00 02/11/19 08:27 Procardia Xl PO 60 mg BID RAFAELA Administration Pantoprazole Sodium 40 mg 02/10/19 09:00 02/11/19 08:27 Protonix PO 40 mg DAILY RAFAELA Administration - Exam NAD, awake alert Eye: PERRL, anicteric sclera ENT: normocephalic atraumatic, no oropharyngeal lesions Neck: supple, symmetric, no JVD Heart: RRR, no murmur, no gallops Respiratory: CTAB, no wheezes, no rales Gastrointestinal: soft, non-tender, non-distended Extremities: no cyanosis, no clubbing, no edema Skin: normal turgor, no lesions Neurological: CN's grossly intact, normal sensation to touch, no focal deficits Musculoskeletal: normal tone, normal strength, no muscle wasting Psychiatric: normal affect, normal behavior Hosp A/P (1) ESRD (end stage renal disease) on dialysis Code(s): N18.6 - END STAGE RENAL DISEASE; Z99.2 - DEPENDENCE ON RENAL DIALYSIS Status: Acute (2) Pleural effusion Code(s): J90 - PLEURAL EFFUSION, NOT ELSEWHERE CLASSIFIED Status: Acute (3) Uremia Code(s): N19 - UNSPECIFIED KIDNEY FAILURE Status: Acute (4) Diabetes mellitus, type II, insulin dependent Code(s): E11.9 - TYPE 2 DIABETES MELLITUS WITHOUT COMPLICATIONS; Z79.4 - SENIOR CARE (CURRENT) USE OF INSULIN Status: Chronic (5) HTN (hypertension) Code(s): I10 - ESSENTIAL (PRIMARY) HYPERTENSION Status: Chronic Qualifiers: Hypertension type: essential hypertension Qualified Code(s): I10 - Essential (primary) hypertension - Plan old records reviewed/req, PT/OT medication reviewed as below symptomatic treatment continue HD as per nephrology uremia improving
[2019-02-11] MEDS: READ PPD TEST SITE PO SCH (20:25)
[2019-02-11] MEDS ORDERED: CEFAZOLIN 2 GM in Premix Bag 1 BAG IVPB SCH (20:45)
--- NOTE | 2019-02-12 02:03 | CON ---
DATE OF CONSULTATION: HISTORY OF PRESENT ILLNESS: Dorie Briceno is a 68-year-old pleasant female, 5 feet 4 inches, 181 pounds, 31 BMI, who as an outpatient 11/02/2018 placed a left Mickie fistula. I explored her proximal volar forearm, found the veins to be so large that a Mickie fistula was performed. She has been followed in my office. She has been admitted on this case to initiate dialysis. She is followed by Dr. Fulton. She is admitted through the emergency room. Hospitalist Service has cared for her. She has a history of diabetes mellitus type 2. They tried to access her left Mickie fistula, but had difficulty accessing it. They had such difficulty that the patient desires having hemodialysis catheter at this time. She eventually wants a peritoneal dialysis catheter, but wants to have her home evaluated and other things done prior to that. Plan at this time is to place a hemodialysis catheter to initiate dialysis more reliably, possibly obtain a fistulogram possibly tomorrow. In the future, we will consider peritoneal dialysis. PAST MEDICAL HISTORY: Diabetes mellitus type 2, insulin dependent; chronic kidney disease, progressive; hypertension; dyslipidemia; GERD. MEDICATIONS: 1. Metformin. 2. Furosemide. 3. Omeprazole. 4. Aspirin. 5. Coenzyme. 6. Vitamins. 7. Nifedipine. ALLERGIES: NONE. PAST SURGICAL HISTORY: Cardiac cath, hysterectomy, , AV fistula left Mickie dated as noted above. FAMILY HISTORY: Hypertension, diabetes mellitus. SOCIAL HISTORY: The patient is . Tobacco none. Alcohol none. PHYSICAL EXAMINATION: VITAL SIGNS: Height 5 feet 4 inches, 101 pounds, 31 BMI, 98.3 degrees, 53, 126/70. HEAD, EARS, EYES, NOSE, AND THROAT: Unremarkable. LUNGS: Clear to auscultation. CARDIAC: Regular rate and rhythm. No murmur or gallop. ABDOMEN: Soft, nontender. Left arm fistula. Good thrill and bruit. Bruising from recent access attempts. ASSESSMENT AND PLAN: Even though this fistula, Mickie, was placed in October, they are not able to reliably access it by now. Plan at this time was to place a hemodialysis catheter, obtain a fistulogram, and give her time to access the fistula. Hopefully, she will not need revision to more proximal one. Await fistulogram results. Job ID: [id number]
[2019-02-12 07:13] LABS: #Lymphocytes 2.2 thou/uL (1.20-3.40); #Monocytes 0.9 thou/uL (0.11-0.59); #Neutrophils 5.4 thou/uL (1.40-6.50); %Basophils 0.4 % (0.0-1.0); %Eosinophils 10.5 % (0.0-10.0); %Lymphocytes 23.1 % (21.0-51.0); %Monocytes 9.2 % (0.0-10.0); %Neutrophils 56.8 % (42.0-75.0); Hemoglobin 9.8 g/dL (12.0-16.0); Mean Corpuscular HGB CONC 33.3 g/dL (32.0-36.0); Mean Corpuscular Volume 93.1 fL (78.0-98.0); Mean Platelet Volume 8.8 fL (7.4-10.4); Platelet Count 355 thou/uL (130-400); RBC Distribution Width 12.4 % (11.5-14.5); Red Blood Cell (RBC) Count 3.17 mill/uL (4.20-5.40); White Blood Cell (WBC) Count 9.6 thou/uL (4.8-10.8)
[2019-02-12 07:30] LABS: Anion Gap 14 mmol/L (10-20); BUN (Urea Nitrogen) 44 mg/dL (9.8-20.1); Calc. Creatinine Clearance 11 mL/min (70-130); Calcium 7.7 mg/dL (7.8-10.44); Carbon Dioxide 20 mmol/L (23-31); Chloride 105 mmol/L (98-107); Estimated GFR-MDRD 6; Glucose 101 mg/dL (80-115); Potassium 3.7 mmol/L (3.5-5.1); Sodium 135 mmol/L (136-145)
[2019-02-12] MEDS ORDERED: Ondansetron PF 4 MG/2 ML Vial IVP PRN (08:19)
[2019-02-12] MEDS ORDERED: Artificial Tears 18 DROP/0.9 ML EA EYE PRN (08:19)
[2019-02-12] MEDS ORDERED: Loperamide HCl 2 MG CAP PO PRN (08:19)
[2019-02-12] MEDS ORDERED: Cepastat Lozenges 1 LOZ PO PRN (08:19)
[2019-02-12] MEDS ORDERED: Bisacodyl 10 MG SUPP PR PRN (08:19)
[2019-02-12] MEDS ORDERED: Diabetic Tussin 200 MG/10 ML UDCUP PO PRN (08:19)
[2019-02-12] MEDS ORDERED: Calcium Carbonate 500 MG ChewTAB PO PRN (08:19)
[2019-02-12] MEDS ORDERED: Senokot S 8.6-50 MG TAB PO PRN (08:19)
[2019-02-12] MEDS ORDERED: Sodium Chloride 0.65% Nasal 44 ML BOT EA NARE PRN (08:19)
[2019-02-12] MEDS ORDERED: Loratadine 10 MG TAB PO PRN (08:19)
[2019-02-12 09:55] LABS: Phosphorus 5.4 mg/dL (2.3-4.7)
--- NOTE | 2019-02-12 10:24 | PRG ---
DATE OF SERVICE: 02/12/2019 SUBJECTIVE: Patient was seen and examined at bedside and overnight events noted. Patient denies any shortness of breath or chest pain or palpitation. No history of nausea or vomiting or diarrhea or fever or chills or cramps. OBJECTIVE: GENERAL: This is an obese female, in no apparent distress. VITAL SIGNS: Temperature 97.9. Heart rate 77. Respiratory rate 20. Blood pressure 144/82. HEENT: Atraumatic, normocephalic. Oral mucosa is moist NECK: Supple. CARDIOVASCULAR: S1, S2 heard. Rate and rhythm regular. RESPIRATORY: Clear to auscultation. GASTROINTESTINAL: Abdomen is soft. MUSCULOSKELETAL: No tenderness. No edema. DERMATOLOGIC: No skin rash. NEUROLOGIC: Alert and awake and oriented X3. No focal neurologic deficits. Moving all the extremities. PSYCHIATRIC: Mood and affect normal. LABORATORY DATA: Potassium is 3.7, BUN is 44, creatinine is 6.5. ASSESSMENT AND PLAN: 1. End-stage renal disease. Plan to have dialysis and follow case management for outpatient placement. 2. Non-maturing fistula. Had evaluation by Surgery and IR for fistulogram. No issues reported. This just need some time to mature and the patient was encouraged to do the exercises she is supposed to. 3. Edema, better. 4. Diabetic nephropathy. 5. Hypoalbuminemia. 6. Plan to continue on dialysis. The patient interested in PD and we will give more education on PD and we will have PD catheter later. Plan is to have tunneled dialysis catheter today and continue dialysis with a catheter until the fistula can hopefully mature in next few weeks. Job ID: [id number]
[2019-02-12] MEDS: Ubidecarenone 50 MG CAP PO SCH (10:51)
[2019-02-12] MEDS: Aspirin 81 mg Enteric Coated Tablet PO SCH (10:51)
[2019-02-12] MEDS: NIFEdipine XL 60 MG TAB PO SCH ×2 (10:52→21:09)
[2019-02-12] MEDS: Ferrous Sulfate 325 MG TAB PO SCH (10:52)
[2019-02-12] MEDS ORDERED: Iopamidol 300 61% 100 ML VIAL FS ONE (11:11)
--- NOTE | 2019-02-12 11:17 | SPC ---
LEFT UPPER EXTREMITY DIALYSIS FISTULOGRAM SONOGRAPHIC GUIDED VASCULAR ACCESS: HISTORY: Renal failure. Difficulty accessing left upper extremity dialysis fistula. FINDINGS: After explaining the procedure and answering all questions, sonographic survey of the left arm fistul a was performed, showing a patent cephalic vein/fistula. Sterile technique, buffered local anesthesia, sonographic guidance, and a 22-gauge needle were used to carefully access the cephalic di alysis fistula at the level of the distal forearm. A 4 [place] micropuncture sheath was placed for imaging. Serial imaging shows the cephalic vein along the forearm, antecubital fossa, and upper arm to be wide ly patent, with good flow and arterial washout. There was very gentle narrowing at the level of the proximal radial shaft where recent attempt at access had been performed for dialysis. The superior ve na cava is patent. A few small collaterals are seen along the course of the cephalic vein and at the antecubital fossa. Reflux angiography was performed, showing opacification of the collaterals at the level of the wrist. The arterial anastomosis was not well opacified due to the collateralization of flow. Those collateral vessels are small, favored to not steal significant blood flow from the fistula. Catheter was removed and hemostasis obtained using direct pressure. Patient tolerated the procedure w ell and was returned in unchanged condition. Fluoroscopy time 0.6 minutes. IMPRESSION: Good flow and function of the left upper extremity dialysis fistula throughout the cephalic vein. No evidence of stenosis. Good arterial inflow with very few collaterals, not significantly stealing flow. Transcribed Date/Time: 02/12/2019 11:42 AM
--- NOTE | 2019-02-12 12:35 | PDOC.HOSPP ---
- Subjective Encounter Date: 02/12/19 Encounter Time: 09:00 Subjective: Patient seen and examined. No new complaints. No overnight events - Objective Vital Signs & Weight: Vital Signs (12 hours) Temp Pulse Resp BP BP Pulse Ox 02/12/19 12:00 98.3 F 76 16 147/73 H 95 02/12/19 10:52 77 02/12/19 07:43 97.9 F 77 20 144/82 H 97 02/12/19 07:36 97 02/12/19 05:33 127/81 02/12/19 04:00 98.0 F 78 18 116/67 92 L Weight Admit Weight 181 lb 14.4 oz Weight 181 lb 14.4 oz I&O: 02/11/19 02/12/19 02/13/19 06:59 06:59 06:59 Intake Total 800 480 Output Total 2000 Balance -1200 480 Result Diagrams: 02/12/19 06:15 02/12/19 06:15 Additional Labs: Accuchecks 02/12/19 02/12/19 02/11/19 12:15 04:09 20:08 POC Glucose 104 104 129 H 02/11/19 16:12 POC Glucose 112 H ROS - Review of Systems ENT: denies: ear pain, ear discharge, nose pain, nose discharge, nose congestion , mouth pain, mouth swelling, throat pain, throat swelling, other Respiratory: denies: cough, dry, shortness of breath, hemoptysis, SOB with excertion, pleuritic pain, sputum, wheezing, other Cardiovascular: denies: chest pain, palpitations, orthopnea, paroxysmal noc. dyspnea, edema, light headedness, other Gastrointestinal: denies: nausea, vomitting, abdominal pain, diarrhea, constipation, melena, hematochezia, other Genitourinary: denies: dysuria, frequency, incontinence, hematuria, retention, other Musculoskeletal: denies: neck pain, shoulder pain, arm pain, back pain, hand pain, leg pain, foot pain, other Skin: denies: rash, lesions, mason, bruising, other - Medication Medications: Active Medications Generic Name Dose Route Start Last Admin Trade Name Freq PRN Reason Stop Dose Admin Aspirin 81 mg 02/10/19 09:00 02/12/19 10:51 Ecotrin PO Not Given DAILY [facility] Cholecalciferol 2,000 units 02/10/19 09:00 02/12/19 10:51 Vitamin D3 PO Not Given DAILY [facility] Coenzyme Q10 200 mg 02/10/19 09:00 02/12/19 10:51 Coenzyme Q10 PO Not Given DAILY [facility] Ferrous Sulfate 325 mg 02/10/19 09:00 02/12/19 10:52 Feosol PO Not Given DAILY [facility] Metoprolol Succinate 100 mg 02/10/19 09:00 02/12/19 05:31 Toprol Xl PO 100 mg DAILY [facility] Administration Nifedipine 60 mg 02/09/19 21:00 02/12/19 10:52 Procardia Xl PO Not Given BID [facility] Read Ppd Test Site 0 each 02/11/19 21:00 02/11/19 20:25 PO 02/12/19 23:59 1 each 2100 [facility] Administration Pantoprazole Sodium 40 mg 02/10/19 09:00 02/12/19 10:51 Protonix PO Not Given DAILY [facility] - Exam NAD, awake alert Eye: PERRL, anicteric sclera ENT: normocephalic atraumatic, no oropharyngeal lesions Neck: supple, symmetric, no JVD Heart: RRR, no murmur, no gallops, no rubs Respiratory: CTAB, no wheezes, no rales, no ronchi Gastrointestinal: soft, non-tender, non-distended Extremities: no cyanosis, no clubbing, no edema Skin: normal turgor, no lesions Neurological: CN's grossly intact, normal sensation to touch, no focal deficits Hosp A/P (1) ESRD (end stage renal disease) on dialysis Code(s): N18.6 - END STAGE RENAL DISEASE; Z99.2 - DEPENDENCE ON RENAL DIALYSIS Status: Chronic (2) Pleural effusion Code(s): J90 - PLEURAL EFFUSION, NOT ELSEWHERE CLASSIFIED Status: Acute (3) Uremia Code(s): N19 - UNSPECIFIED KIDNEY FAILURE Status: Acute (4) Diabetes mellitus, type II, insulin dependent Code(s): E11.9 - TYPE 2 DIABETES MELLITUS WITHOUT COMPLICATIONS; Z79.4 - PREVENTIVE MEDICINE OFFICER (CURRENT) USE OF INSULIN Status: Chronic (5) HTN (hypertension) Code(s): I10 - ESSENTIAL (PRIMARY) HYPERTENSION Status: Chronic Qualifiers: Hypertension type: essential hypertension Qualified Code(s): I10 - Essential (primary) hypertension - Plan old records reviewed/req, director of social work medication reviewed as above symptomatic treatment today fistulogram today tunneled HD catheter placement continue HD as per nephrology uremia improving possible discharge over weekend cyanide case hardener to arrange outpt HD
[2019-02-12] MEDS ORDERED: PROPOFOL 200 MG/20 ML VIAL ONE (15:51)
[2019-02-12] MEDS ORDERED: Propofol 500 MG/50 ML VIAL ONE (18:14)
[2019-02-12] MEDS ORDERED: Fentanyl 100 MCG/2 ML VIAL ONE (18:14)
[2019-02-12] MEDS ORDERED: Lidocaine 2% PF 5 ML VIAL ONE (18:17)
[2019-02-12] MEDS ORDERED: Bupivacaine HCl 0.5%/Epinephrine 1:200,000/PF 30 ml Vial ONE (18:17)
[2019-02-12] MEDS ORDERED: Sodium Chloride 0.9% 10 ML ONE (18:17)
[2019-02-12] MEDS ORDERED: Heparin 5,000 UNITS/ML VIAL ONE (18:17)
[2019-02-12] MEDS ORDERED: Heparin 10,000 UNITS/1 ML VIAL ONE (18:30)
[2019-02-12] MEDS ORDERED: Acetaminophen 500 MG TAB PO PRN (18:35)
[2019-02-12] MEDS ORDERED: traMADol HCl 50 MG TAB PO PRN (18:35)
--- NOTE | 2019-02-12 19:42 | RAD ---
CHEST ONE VIEW: 02/12/19 COMPARISON: 02/09/19. HISTORY: Hemosplit dialysis catheter placement. FINDINGS: Interval placement of right sided Hemosplit dialysis catheter. No pneumothorax. Persistent opacificat ion of the right lung base due to pleural and parenchymal changes. Stable configuration of the cardia c silhouette. Atherosclerosis is noted. IMPRESSION: Interval placement of a right sided Hemosplit dialysis catheter. No pneumothorax. POS: PPP
--- NOTE | 2019-02-12 19:56 | OP ---
DATE OF PROCEDURE: 02/12/2019 PREOPERATIVE DIAGNOSES: End-stage renal disease, initiating dialysis, POSTOPERATIVE DIAGNOSES: End-stage renal disease, initiating dialysis, PROCEDURES PERFORMED: Right IJ cuffed tunneled hemodialysis catheter, ultrasound fluoroscopy used. ANESTHESIA: Intravenous sedation, local 0.5% Marcaine with epinephrine, 30 mL mixed with 2% Xylocaine 10 mL. DESCRIPTION OF PROCEDURE: The patient was taken to the operating room, where under intravenous sedation, neck and chest were prepared with ChloraPrep and draped in routine fashion. Ultrasound guidance was used to cannulate the right internal jugular vein with trocar catheter. J-wire catheter was inserted. Trocar catheter was removed. Skin site was enlarged sharply. Stab incision was made over the right chest. Local anesthetic was infiltrated in the skin and subcutaneous tissue for about the operative site. Using the tunneling device, the pre-curved AngioDynamics cuffed-tunneled hemodialysis catheter tunneled between 2 incisions, placed in the fabric cuff beneath the catheter exit site. The small and medium sized dilators were placed over the J-wire into the internal jugular vein were removed. Dilator and Peel-Away sheath placed over the J-wire into the superior vena cava. Dilator and J-wire were removed. Catheter placed through the Peel-Away sheath. Platysma was approximated with 4-0 Monocryl, skin with subdermal 4-0 Monocryl, and [place] glue and sterile dressings applied. Fluoroscopic images revealed good line placement. Each port aspirated. Blood flushed with saline solution and heparinized saline solution, 1000 units of heparin per mL indicating the volume of the port. Job ID: [id number]
[2019-02-13] MEDS: READ PPD TEST SITE PO SCH (03:31)
[2019-02-13 06:33] LABS: Anion Gap 19 mmol/L (10-20); BUN (Urea Nitrogen) 48 mg/dL (9.8-20.1); Calc. Creatinine Clearance 10 mL/min (70-130); Calcium 8.4 mg/dL (7.8-10.44); Carbon Dioxide 18 mmol/L (23-31); Chloride 106 mmol/L (98-107); Estimated GFR-MDRD 6; Glucose 94 mg/dL (80-115); Sodium 139 mmol/L (136-145)
[2019-02-13] MEDS: Aspirin 81 mg Enteric Coated Tablet PO SCH (08:04)
[2019-02-13] MEDS: Ubidecarenone 50 MG CAP PO SCH (08:04)
[2019-02-13] MEDS: NIFEdipine XL 60 MG TAB PO SCH (08:05)
[2019-02-13] MEDS: Ferrous Sulfate 325 MG TAB PO SCH (08:05)
--- NOTE | 2019-02-13 12:13 | PRG ---
DATE OF SERVICE: 02/13/2019 SUBJECTIVE: Patient was seen and examined at bedside and overnight events noted. Patient denies any shortness of breath or chest pain or palpitation. No history of nausea or vomiting or diarrhea or fever or chills or cramps. OBJECTIVE: GENERAL: This is an elderly female, in no apparent distress. VITAL SIGNS: Temperature 97.9. Heart rate 84. Respiratory rate . Blood pressure 161/72. HEENT: Atraumatic, normocephalic. Oral mucosa is moist NECK: Supple. CARDIOVASCULAR: S1, S2 heard. Rate and rhythm regular. RESPIRATORY: Clear to auscultation. GASTROINTESTINAL: Abdomen is soft. MUSCULOSKELETAL: No tenderness. No edema. DERMATOLOGIC: No skin rash. NEUROLOGIC: Alert and awake and oriented X3. No focal neurologic deficits. Moving all the extremities. PSYCHIATRIC: Mood and affect normal. LABORATORY DATA: Potassium 4.0, BUN is 48, creatinine 6.9. ASSESSMENT: 1. End-stage renal disease. Continue on dialysis. The patient was counseled on peritoneal dialysis too. The patient wants to try that. We will have PD catheter still. 2. Non-maturing fistula, status post catheter placement. 3. Edema, better. 4. Diabetic nephropathy. 5. Hypoalbuminemia. PLAN: To continue on dialysis as tolerated. The patient was counseled on home dialysis. Job ID: [id number]
--- NOTE | 2019-02-13 13:40 | EKG ---
Test Reason : Blood Pressure : / mmHG Vent. Rate : 075 BPM Atrial Rate : 075 BPM P-R Int : 152 ms QRS Dur : 078 ms QT Int : 408 ms P-R-T Axes : 033 -02 076 degrees QTc Int : 455 ms Normal sinus rhythm Normal ECG Confirmed by BECKY ALMENDAREZ, LYNDSAY ([id number]), advertising editor CLIFTON JUARES ([id number]) on 02/13/2019 1:40:08 PM Referred By: Confirmed By:LYNDSAY PENA MD
--- NOTE | 2019-02-13 15:18 | PDOC.EVN ---
Event Note - Event Note Event Note: DC SUMMARY #[id number]
[2019-02-13 15:55] VITALS: BP 135/62; TEMP 98.2
--- NOTE | 2019-02-13 19:43 | DIS ---
DATE OF ADMISSION: 02/09/2019 DATE OF DISCHARGE: 02/13/2019 ADMITTING DIAGNOSES: Chronic kidney disease 5, declaration of end-stage renal disease, pleural effusions, hypertension, hyperlipidemia, metabolic bone disease, diabetes mellitus type 2, and vascular disease. DISCHARGE DIAGNOSES: New declared end-stage renal disease, metabolic bone disease, hypertension, anemia of renal disease, diabetes mellitus type 2, pleural effusion, hyperlipidemia. HOSPITAL COURSE: This is a 68-year-old female, admitted to Internal Medicine Team for purposes of initiation of dialysis. The patient was admitted to Internal Medicine Team, seed by Nephrology as well as Surgical Team for catheter placement. The patient had dialysis access placed. Arrangements were made for outpatient dialysis for initiation of dialysis. The patient was started on dialysis treatment here, tolerated treatment very well. Arrangements were made. She was to follow up with the dialysis unit on Friday, received her last dialysis session in the hospital on Friday. At point in time of discharge, the patient's condition was stable. Denies any nausea, vomiting, diarrhea, constipation, chest pain, fevers, chills, or shortness of breath. The patient was advised to follow up with her unit on Friday and her PCP in 1-2 weeks for further management and care. DISPOSITION: Home. FOLLOWUP: Follow up with PCP within 1 to 2 weeks, dialysis unit on Friday in 2 days. MEDICATIONS: See MAR. ACTIVITY: As tolerated with assistance as needed. DIET: Low-fat low-calorie high-fiber diet. CONDITION: Stable. PROGNOSIS: Good. Once again, case and plan discussed with the patient at length. She understood and agreed to this plan. Job ID: [id number]
== END 2019-02-13 18:39 | disposition home or self-care (01) | DRG 673 ==
LOC: ERS 12:52 → ERHOLD 16:22 → T4-A 19:16
PROVIDERS: ADMIT Internal Medicine; ATTEND Internal Medicine
PROC: 0JH63XZ Insertion of Tunneled Vascular Access Device into Chest Subcutaneous Tissue and Fascia, Percutaneous Approach (ICD-10-PCS; principal; 2019-02-12)
PROC: 02HV33Z Insertion of Infusion Device into Superior Vena Cava, Percutaneous Approach (ICD-10-PCS; 2019-02-12)
PROC: B548ZZA Ultrasonography of Superior Vena Cava, Guidance (ICD-10-PCS; 2019-02-12)
PROC: B51WYZZ Fluoroscopy of Dialysis Shunt/Fistula using Other Contrast (ICD-10-PCS; 2019-02-12)
PROC: 5A1D70Z Performance of Urinary Filtration, Intermittent, Less than 6 Hours Per Day (ICD-10-PCS; 2019-02-12)
DX: I12.0 Hypertensive chronic kidney disease with stage 5 chronic kidney disease or end stage renal disease (principal); N18.6 End stage renal disease; E87.2 Acidosis; J90 Pleural effusion, not elsewhere classified; E11.22 Type 2 diabetes mellitus with diabetic chronic kidney disease; E78.5 Hyperlipidemia, unspecified; K21.9 Gastro-esophageal reflux disease without esophagitis; D63.1 Anemia in chronic kidney disease; E11.21 Type 2 diabetes mellitus with diabetic nephropathy; Z79.84 Long term (current) use of oral hypoglycemic drugs; Z79.82 Long term (current) use of aspirin; Z79.899 Other long term (current) drug therapy
CPT/HCPCS: 36415; 36416; 36901; 71045; 80048; 80053; 83690; 83880; 83970; 84100; 84484; 85025; 86580; 86704; 86706; 86803; 87340; 90935; 93005; C1752; C1769; G0257; J0670; J0690; J1642; J1644; J2001; J2704; J3010; Q9967

== ENCOUNTER 2019-03-25 10:08 | Day surgery (SDC) | payer MEDICARE, BC ==
[2019-03-24 15:35] VITALS: BMI 30.7
[~2019-03-25 10:08] MED LIST: PROPOFOL 200 MG/20 ML VIAL ONE
[2019-03-25 11:12] LABS: #Basophils 0.1 thou/uL (0.0-0.2); #Eosinphils 0.9 thou/uL (0.0-0.7); #Lymphocytes 2.2 thou/uL (1.20-3.40); #Monocytes 0.8 thou/uL (0.11-0.59); #Neutrophils 7.8 thou/uL (1.40-6.50); %Basophils 0.7 % (0.0-1.0); %Eosinophils 7.5 % (0.0-10.0); %Lymphocytes 18.8 % (21.0-51.0); %Monocytes 7.1 % (0.0-10.0); %Neutrophils 65.8 % (42.0-75.0); Hemoglobin 10.8 g/dL (12.0-16.0); Mean Corpuscular HGB CONC 33.7 g/dL (32.0-36.0); Mean Corpuscular Hemoglobin 31.3 pg (27.0-31.0); Mean Corpuscular Volume 92.8 fL (78.0-98.0); Mean Platelet Volume 8.5 fL (7.4-10.4); Platelet Count 403 thou/uL (130-400); RBC Distribution Width 13.5 % (11.5-14.5); Red Blood Cell (RBC) Count 3.46 mill/uL (4.20-5.40); White Blood Cell (WBC) Count 11.8 thou/uL (4.8-10.8)
[2019-03-25] MEDS ORDERED: Fentanyl 100 MCG/2 ML VIAL ONE (11:29)
[2019-03-25] MEDS ORDERED: Sodium Chloride 0.9% 20 ML ONE (11:32)
[2019-03-25] MEDS ORDERED: Bupivacaine HCl 0.5%/Epinephrine 1:200,000/PF 30 ml Vial ONE (11:32)
[2019-03-25] MEDS ORDERED: Heparin 10,000 UNITS/1 ML VIAL ONE (11:32)
[2019-03-25] MEDS ORDERED: Lidocaine 2% PF 5 ML VIAL ONE (11:32)
[2019-03-25 11:33] LABS: Anion Gap 18 mmol/L (10-20); BUN (Urea Nitrogen) 62 mg/dL (9.8-20.1); Calc. Creatinine Clearance 11 mL/min (70-130); Calcium 8.1 mg/dL (7.8-10.44); Carbon Dioxide 22 mmol/L (23-31); Chloride 103 mmol/L (98-107); Estimated GFR-MDRD 7; Glucose 212 mg/dL (80-115); Potassium 4.5 mmol/L (3.5-5.1); Sodium 138 mmol/L (136-145)
--- NOTE | 2019-03-25 12:54 | RAD ---
EXAM: Single view of the chest HISTORY: Hemodialysis catheter placement COMPARISON: 02/12/2019 FINDINGS: Single view of the chest shows a normal sized cardiomediastinal silhouette. There is a mod erate right pleural effusion. A right IJ hemodialysis catheter seen with its tip in the superior vena cava. No pneumothorax is seen. No left pleural effusion or consolidation is seen The bones are unremarkable. IMPRESSION: 1. Status post dialysis catheter placement without evidence of complication 2. Moderate right pleural effusion
--- NOTE | 2019-03-25 15:35 | OP ---
DATE OF PROCEDURE: 03/25/2019 PREOPERATIVE DIAGNOSES: Endstage renal disease, unable to access her left Mickie fistula this time, dysfunctional hemodialysis catheter. POSTOPERATIVE DIAGNOSES: Endstage renal disease, unable to access her left Mickie fistula this time, dysfunctional hemodialysis catheter. PROCEDURE PERFORMED: Removal of right IJ cuffed tunneled hemodialysis catheter. Placement of the right IJ cuffed tunneled hemodialysis catheter, fluoroscopy used. ANESTHESIA: General LMA, local 0.5% Marcaine with epinephrine 30 mL mixed with 2% Xylocaine 10 mL. DESCRIPTION OF PROCEDURE: The patient was taken to the operating room. Under LMA anesthesia, neck and chest prepared with ChloraPrep and draped in routine fashion. Local anesthetic was infiltrated in the skin and subcutaneous tissue about the operative site. The old IJ catheter cuff removed from the tunnel. These instruments were discarded. Incision was made in the right side of the neck and carried down through the skin, platysma, and catheter dissected free, transected with scissors, controlled with hemostats. The old catheter removed. The area prepared with ChloraPrep. New gloves obtain. Stab incision was made over the right chest and using a tunneling device, pre-curved AngioDynamics cuffed-tunneled hemodialysis catheter tunneled between 2 incisions, placed the fabric cuff beneath the skin exit site. The dilator and judit sheath placed over the J-wire, which had been placed through the old catheter removing the old catheter and dilator and J-wire were removed. Catheter placed through the Peel-Away sheath and Peel-Away sheath removed. Platysma was approximated with 4-0 Monocryl, skin with subdermal 4-0 Monocryl and Sorgho glue applied. Each port aspirated blood and flushed with heparinized saline solution 1000 units heparin per mL indicating volume of the port. Sterile dressings applied after catheter was secured with 3-0 nylon suture. Fluoroscopic images revealed good line placement. Job ID: [id number]
== END 2019-03-25 15:35 | disposition home or self-care (01) ==
LOC: SDC 10:08
PROVIDERS: ATTEND Specialist
PROC: 0JPT3XZ Removal of Tunneled Vascular Access Device from Trunk Subcutaneous Tissue and Fascia, Percutaneous Approach (ICD-10-PCS; principal; 2019-03-25)
PROC: 0JH63XZ Insertion of Tunneled Vascular Access Device into Chest Subcutaneous Tissue and Fascia, Percutaneous Approach (ICD-10-PCS; 2019-03-25)
PROC: 05PY33Z Removal of Infusion Device from Upper Vein, Percutaneous Approach (ICD-10-PCS; 2019-03-25)
PROC: 05HM33Z Insertion of Infusion Device into Right Internal Jugular Vein, Percutaneous Approach (ICD-10-PCS; 2019-03-25)
DX: T82.41XA Breakdown (mechanical) of vascular dialysis catheter, initial encounter (principal); I12.0 Hypertensive chronic kidney disease with stage 5 chronic kidney disease or end stage renal disease; E11.22 Type 2 diabetes mellitus with diabetic chronic kidney disease; N18.6 End stage renal disease; E78.00 Pure hypercholesterolemia, unspecified; Z79.82 Long term (current) use of aspirin; Z79.899 Other long term (current) drug therapy; Z99.2 Dependence on renal dialysis
CPT/HCPCS: 36558; 36589; 71045; 80048; 85025; C1752; C1769; J0670; J0690; J1644; J2001; J3010

== ENCOUNTER 2021-10-30 09:25 | Outpatient (CLI) | payer MEDICARE, BC | END 2021-10-30 09:26 | disposition home or self-care (01) | LOC: BICMAMMO 09:25 | PROVIDERS: ATTEND Family Medicine | DX: N63.10 Unspecified lump in the right breast, unspecified quadrant (principal); N63.20 Unspecified lump in the left breast, unspecified quadrant; Z13.820 Encounter for screening for osteoporosis; N95.9 Unspecified menopausal and perimenopausal disorder; M81.0 Age-related osteoporosis without current pathological fracture | CPT/HCPCS: 76642 ×2; 77066; 77080; G0279 ==

== ENCOUNTER 2021-12-22 18:10 | Observation (INO) | payer MEDICARE, BC ==
[2021-12-22 18:37] LABS: #Eosinphils 0.4 thou/uL (0.0-0.7); #Lymphocytes 1.4 thou/uL (1.20-3.40); #Monocytes 0.7 thou/uL (0.11-0.59); %Basophils 0.3 % (0.0-1.0); %Eosinophils 3.3 % (0.0-10.0); %Lymphocytes 12.3 % (21.0-51.0); %Monocytes 6.3 % (0.0-10.0); %Neutrophils 77.9 % (42.0-75.0); Hemoglobin 10.8 g/dL (12.0-16.0); Mean Corpuscular HGB CONC 31.9 g/dL (32.0-36.0); Mean Corpuscular Hemoglobin 32.3 pg (27.0-31.0); Mean Platelet Volume 7.9 fL (7.4-10.4); Platelet Count 432 thou/uL (130-400); Red Blood Cell (RBC) Count 3.33 mill/uL (4.20-5.40); White Blood Cell (WBC) Count 11.5 thou/uL (4.8-10.8)
[2021-12-22 18:54] LABS: ALT (SGPT) Less than 7 U/L (8-55); AST (SGOT) 12 U/L (5-34); Albumin 4.1 g/dL (3.4-4.8); Alkaline Phosphatase 94 U/L (40-110); Anion Gap 18 mmol/L (10-20); BUN (Urea Nitrogen) 19 mg/dL (9.8-20.1); Bilirubin, Total 0.8 mg/dL (0.2-1.2); Calc. Creatinine Clearance 0 mL/min (70-130); Calcium 10.2 mg/dL (7.8-10.44); Carbon Dioxide 28 mmol/L (23-31); Chloride 98 mmol/L (98-107); Estimated GFR 8; Globulin 3.4 g/dL (2.4-3.5); Glucose 116 mg/dL (80-115); Potassium 3.6 mmol/L (3.5-5.1); Protein, Total 7.5 g/dL (5.8-8.1); Sodium 140 mmol/L (136-145)
[2021-12-22] MEDS ORDERED: Acetaminophen 650 MG Suppository PR PRN (21:57)
[2021-12-22] MEDS ORDERED: Acetaminophen 325 MG TAB PO PRN (21:57)
[2021-12-22] MEDS ORDERED: Ondansetron PF 4 MG/2 ML Vial IVP PRN (21:57)
[2021-12-22] MEDS ORDERED: Ondansetron ODT 4 MG TAB PO PRN (21:57)
[2021-12-22 22:38] VITALS: BMI 29.0
[2021-12-22 22:43] LABS: SARS-CoV-2 NAA Rapid Test Not Detected (NotDetected)
[2021-12-22 23:31] LABS: HBSAg Index 0.26 S/CO (0-0.99); Hep B Surf Ag Non-Reactive S/CO (NonReactive)
[2021-12-23] MEDS ORDERED: HumaLOG 300 UNITS/3 ML VIAL SC PRN ×2 (00:31)
[2021-12-23] MEDS ORDERED: Dextrose 5% in Water 1,000 ML IV PRN (00:31)
[2021-12-23] MEDS ORDERED: Dextrose 50% Abboject 50 ML SYRINGE SLOW IVP PRN (00:31)
[2021-12-23] MEDS: cefTRIAXone\\ROCEPHIN 1 GM in Sodium Chloride 0.9% 100 ML IVPB SCH (03:25)
[2021-12-23] MEDS: Azithromycin 500 MG in Sodium Chloride 0.9% 250 ML 250 ML IVPB SCH (04:40)
[2021-12-23] MEDS: Heparin 5,000 UNITS/ML VIAL SC SCH ×3 (07:54→20:39)
[2021-12-23 08:05] LABS: #Basophils 0.1 thou/uL (0.0-0.2); #Eosinphils 0.4 thou/uL (0.0-0.7); #Lymphocytes 1.2 thou/uL (1.20-3.40); #Monocytes 0.8 thou/uL (0.11-0.59); #Neutrophils 6.9 thou/uL (1.40-6.50); %Eosinophils 3.9 % (0.0-10.0); %Lymphocytes 13.1 % (21.0-51.0); %Monocytes 8.6 % (0.0-10.0); %Neutrophils 73.4 % (42.0-75.0); Hemoglobin 9.9 g/dL (12.0-16.0); Mean Corpuscular HGB CONC 31.8 g/dL (32.0-36.0); Mean Corpuscular Hemoglobin 32.5 pg (27.0-31.0); Mean Platelet Volume 7.6 fL (7.4-10.4); Platelet Count 356 thou/uL (130-400); RBC Distribution Width 13.9 % (11.5-14.5); Red Blood Cell (RBC) Count 3.05 mill/uL (4.20-5.40); White Blood Cell (WBC) Count 9.4 thou/uL (4.8-10.8)
[2021-12-23 08:21] LABS: Anion Gap 16 mmol/L (10-20); BUN (Urea Nitrogen) 11 mg/dL (9.8-20.1); Calc. Creatinine Clearance 18 mL/min (70-130); Calcium 9.4 mg/dL (7.8-10.44); Carbon Dioxide 28 mmol/L (23-31); Chloride 101 mmol/L (98-107); Estimated GFR 14; Glucose 111 mg/dL (80-115); Potassium 3.7 mmol/L (3.5-5.1); Sodium 141 mmol/L (136-145)
[2021-12-23] MEDS ORDERED: Amlodipine 5 MG TAB PO SCH (17:30)
[2021-12-24] MEDS: cefTRIAXone\\ROCEPHIN 1 GM in Sodium Chloride 0.9% 100 ML IVPB SCH (00:18)
[2021-12-24] MEDS: Azithromycin 500 MG in Sodium Chloride 0.9% 250 ML 250 ML IVPB SCH (01:54)
[2021-12-24] MEDS: Heparin 5,000 UNITS/ML VIAL SC SCH ×2 (08:33→15:14)
[2021-12-24 14:30] VITALS: BP 187/78; TEMP 98.8
== END 2021-12-24 19:25 | disposition home or self-care (01) ==
LOC: ERS 18:10 → T4-A 20:46
PROVIDERS: ADMIT Internal Medicine; ATTEND Internal Medicine
DX: E87.70 Fluid overload, unspecified (principal); J96.01 Acute respiratory failure with hypoxia; I13.2 Hypertensive heart and chronic kidney disease with heart failure and with stage 5 chronic kidney disease, or end stage renal disease; E11.22 Type 2 diabetes mellitus with diabetic chronic kidney disease; N18.6 End stage renal disease; I50.9 Heart failure, unspecified; D63.1 Anemia in chronic kidney disease; J90 Pleural effusion, not elsewhere classified; E11.42 Type 2 diabetes mellitus with diabetic polyneuropathy; K21.9 Gastro-esophageal reflux disease without esophagitis; E78.00 Pure hypercholesterolemia, unspecified; I08.1 Rheumatic disorders of both mitral and tricuspid valves; Z79.82 Long term (current) use of aspirin; Z79.84 Long term (current) use of oral hypoglycemic drugs; Z79.899 Other long term (current) drug therapy; Z99.2 Dependence on renal dialysis; Z20.822 Contact with and (suspected) exposure to COVID-19
CPT/HCPCS: 71045; 80048; 80053; 82553; 82962 ×2; 83880; 84145; 84484; 85025 ×2; 87340; 93005; 93306; 94760; 99285; U0002; 36415; 36416; 90935; 96366; 96367; 96375; 96376; G0257; G0378; J0456; J0696; J1644; J2405; J3490; J7050

== ENCOUNTER 2022-04-30 09:22 | Day surgery (SDC) | payer MEDICARE, BC ==
[2022-04-29 13:15] VITALS: BMI 30.5
[~2022-04-30 09:22] MED LIST changes: +EPINEPHrine 0.3 MG in Ophthalmic Irrigation Solution 500 ML IRR SCH; -PROPOFOL 200 MG/20 ML VIAL ONE
[2022-04-30] MEDS ORDERED: Cyclopentolate 1% Opth Drop 2 ML BOT ONE (09:57)
[2022-04-30] MEDS ORDERED: Phenylephrine 2.5% Ophth Soln 5 ML BOT ONE (09:57)
[2022-04-30] MEDS ORDERED: fentaNYL PF 100 MCG/2 ML SYRINGE ONE (11:17)
[2022-04-30] MEDS ORDERED: Triamcinolone 40 MG/ML VIAL ONE (11:25)
[2022-04-30] MEDS ORDERED: Lidocaine 1% PF 5 ML VIAL ONE (11:25)
[2022-04-30] MEDS ORDERED: PROPOFOL 200 MG/20 ML VIAL ONE (11:25)
[2022-04-30] MEDS ORDERED: CEFAZOLIN 1 GM VIAL ONE (11:25)
[2022-04-30] MEDS ORDERED: Maxitrol 0.1% Opth Oint 3.5 GM TUBE ONE (11:25)
[2022-04-30] MEDS ORDERED: Lidocaine 2% PF 5 ML VIAL ONE (11:25)
[2022-04-30] MEDS ORDERED: Bupivacaine 0.75% 10 ML VIAL ONE (11:25)
[2022-04-30] MEDS ORDERED: Metoprolol Tartrate 5 MG/5 ML VIAL ONE ×2 (12:02)
== END 2022-04-30 13:08 | disposition home or self-care (01) ==
LOC: SDC 09:22
PROVIDERS: ATTEND Ophthalmology Retina Specialist
PROC: 08T43ZZ Resection of Right Vitreous, Percutaneous Approach (ICD-10-PCS; principal; 2022-04-30)
PROC: 08QE3ZZ Repair Right Retina, Percutaneous Approach (ICD-10-PCS; 2022-04-30)
DX: H43.11 Vitreous hemorrhage, right eye (principal); E11.3591 Type 2 diabetes mellitus with proliferative diabetic retinopathy without macular edema, right eye; Z79.82 Long term (current) use of aspirin; Z79.899 Other long term (current) drug therapy
CPT/HCPCS: J0171; J0690; J2001; J2704; J3301; J3490

== ENCOUNTER 2022-06-18 09:31 | Day surgery (SDC) | payer MEDICARE, BC ==
[2022-06-13 10:24] VITALS: BMI 30.5
[~2022-06-18 09:31] MED LIST changes: +Fentanyl 100 MCG/2 ML VIAL ONE; +Midazolam HCl 2 mg/2 ml Vial ONE
[2022-06-18] MEDS ORDERED: Phenylephrine 2.5% Ophth Soln 5 ML BOT ONE (09:57)
[2022-06-18] MEDS ORDERED: Cyclopentolate 1% Opth Drop 2 ML BOT ONE (09:57)
[2022-06-18] MEDS ORDERED: Lidocaine 1% PF 5 ML VIAL ONE (10:46)
[2022-06-18] MEDS ORDERED: CEFAZOLIN 1 GM VIAL ONE (10:46)
[2022-06-18] MEDS ORDERED: Bupivacaine 0.75% 10 ML VIAL ONE (10:46)
[2022-06-18] MEDS ORDERED: PROPOFOL 200 MG/20 ML VIAL ONE (10:46)
[2022-06-18] MEDS ORDERED: Lidocaine 4% PF 5 ML AMP ONE (10:46)
[2022-06-18] MEDS ORDERED: Triamcinolone 40 MG/ML VIAL ONE (10:46)
[2022-06-18] MEDS ORDERED: Maxitrol 0.1% Opth Oint 3.5 GM TUBE ONE (10:46)
[2022-06-18] MEDS ORDERED: Labetalol HCl 100 MG/20 ML VIAL ONE (11:57)
== END 2022-06-18 12:40 | disposition home or self-care (01) ==
LOC: SDC 09:31
PROVIDERS: ATTEND Ophthalmology Retina Specialist
PROC: 08T53ZZ Resection of Left Vitreous, Percutaneous Approach (ICD-10-PCS; principal; 2022-06-18)
PROC: 08QF3ZZ Repair Left Retina, Percutaneous Approach (ICD-10-PCS; 2022-06-18)
DX: H43.12 Vitreous hemorrhage, left eye (principal); E11.3592 Type 2 diabetes mellitus with proliferative diabetic retinopathy without macular edema, left eye; Z79.82 Long term (current) use of aspirin; Z79.899 Other long term (current) drug therapy
CPT/HCPCS: J0171; J0690; J2250; J2704; J3010; J3301; J3490

== ENCOUNTER 2022-08-15 11:12 | Outpatient (CLI) | payer MEDICARE, BC | END 2022-08-15 11:13 | disposition home or self-care (01) | LOC: BICRAD 11:12 | PROVIDERS: ATTEND Family Medicine | DX: R06.02 Shortness of breath (principal); I51.7 Cardiomegaly | CPT/HCPCS: 71046 ==

== ENCOUNTER 2022-08-26 15:56 | Inpatient (IN) | payer MEDICARE, BC ==
[2022-08-26 19:20] LABS: #Eosinphils 0.2 thou/uL (0.0-0.7); #Lymphocytes 0.6 thou/uL (1.20-3.40); #Monocytes 0.8 thou/uL (0.11-0.59); #Neutrophils 8.3 thou/uL (1.40-6.50); %Basophils 0.3 % (0.0-1.0); %Eosinophils 1.9 % (0.0-10.0); %Lymphocytes 6.2 % (21.0-51.0); %Monocytes 7.5 % (0.0-10.0); %Neutrophils 84.1 % (42.0-75.0); Hemoglobin 10.7 g/dL (12.0-16.0); Mean Corpuscular HGB CONC 32.7 g/dL (32.0-36.0); Mean Corpuscular Hemoglobin 32.3 pg (27.0-31.0); Mean Corpuscular Volume 98.9 fl (78.0-98.0); Mean Platelet Volume 9.8 fL (7.4-10.4); Platelet Count 261 10x3/uL (130-400); RBC Distribution Width 15.2 % (11.5-14.5); White Blood Cell (WBC) Count 9.9 10x3/uL (4.8-10.8)
[2022-08-26 19:39] LABS: ALT (SGPT) 8 U/L (8-55); AST (SGOT) 13 U/L (5-34); Alkaline Phosphatase 80 U/L (40-110); Anion Gap 19 mmol/L (10-20); BUN (Urea Nitrogen) 50 mg/dL (9.8-20.1); Bilirubin, Total 0.7 mg/dL (0.2-1.2); Calc. Creatinine Clearance 0 mL/min (70-130); Calcium 9.9 mg/dL (7.8-10.44); Carbon Dioxide 22 mmol/L (23-31); Chloride 100 mmol/L (98-107); Estimated GFR 4; Globulin 3.2 g/dL (2.4-3.5); Glucose 116 mg/dL (83-110); Potassium 4.7 mmol/L (3.5-5.1); Protein, Total 7.2 g/dL (5.8-8.1); Sodium 136 mmol/L (136-145)
[2022-08-26] MEDS ORDERED: Acetaminophen 325 MG TAB PO PRN (23:21)
[2022-08-26] MEDS ORDERED: Senokot S 8.6-50 MG TAB PO PRN (23:21)
[2022-08-26] MEDS ORDERED: Ondansetron ODT 4 MG TAB PO PRN (23:21)
[2022-08-26 23:28] VITALS: BMI 29.7
[2022-08-27 00:01] LABS: Troponin I 0.017 ng/mL (< 0.028)
[2022-08-27 03:04] LABS: Troponin I 0.016 ng/mL (< 0.028)
[2022-08-27 04:30] LABS: #Eosinphils 0.1 thou/uL (0.0-0.7); #Lymphocytes 0.8 thou/uL (1.20-3.40); #Monocytes 0.8 thou/uL (0.11-0.59); #Neutrophils 6.1 thou/uL (1.40-6.50); %Basophils 0.6 % (0.0-1.0); %Lymphocytes 9.6 % (21.0-51.0); %Monocytes 9.8 % (0.0-10.0); %Neutrophils 78.9 % (42.0-75.0); Mean Corpuscular HGB CONC 32.7 g/dL (32.0-36.0); Mean Corpuscular Hemoglobin 32.6 pg (27.0-31.0); Mean Corpuscular Volume 99.7 fl (78.0-98.0); Mean Platelet Volume 9.3 fL (7.4-10.4); Platelet Count 314 10x3/uL (130-400); RBC Distribution Width 15.2 % (11.5-14.5); Red Blood Cell (RBC) Count 3.06 mill/uL (4.20-5.40); White Blood Cell (WBC) Count 7.7 10x3/uL (4.8-10.8)
[2022-08-27 04:51] LABS: Anion Gap 22 mmol/L (10-20); BUN (Urea Nitrogen) 54 mg/dL (9.8-20.1); Calc. Creatinine Clearance 7 mL/min (70-130); Calcium 9.2 mg/dL (7.8-10.44); Carbon Dioxide 21 mmol/L (23-31); Chloride 98 mmol/L (98-107); Estimated GFR 4; Glucose 70 mg/dL (83-110); Potassium 4.7 mmol/L (3.5-5.1); Sodium 136 mmol/L (136-145)
[2022-08-27 06:24] LABS: Bacteria/HPF None Seen HPF (None Seen); Bilirubin Negative (Negative); Blood, Urine Negative (Negative); Clarity Clear (Clear); Glucose, Urine (Dipstick) 200 mg/dL (Negative); Ketone, Urine Negative (Negative); Leukocyte Negative Leu/uL (Negative); Nitrite Negative (Negative); Protein, Urine (Dipstick) 300 mg/dL (Neg-Trace); RBC/HPF 0-3 HPF (0-3); Specific Gravity, Urine 1.011 (1.002-1.036); Urobilinogen Normal mg/dL (Less than 2); WBC/HPF 0-3 HPF (0-3); pH, Urine 8.5 (5.0-9.0)
[2022-08-27] MEDS: Carvedilol 6.25 MG TAB PO SCH ×2 (08:01→18:44)
[2022-08-27] MEDS ORDERED: Dexamethasone 10 MG/ML VIAL SLOW IVP SCH ×2 (09:00→15:25)
[2022-08-27] MEDS ORDERED: Famotidine 20 MG TAB PO SCH (09:00)
[2022-08-27] MEDS ORDERED: Dexamethasone 10 MG in Sodium Chloride 0.9% 50 ML IVPB SCH (09:00)
[2022-08-27] MEDS: hydrALAZINE 25 MG TAB PO SCH ×3 (09:15→21:42)
[2022-08-27] MEDS: CO Q-10 CAPSULE 100 MG PO SCH (09:15)
[2022-08-27] MEDS: Folic Acid/Vit B Comp W-C PO SCH (09:15)
[2022-08-27] MEDS: Aspirin 81 mg Enteric Coated Tablet PO SCH (09:15)
[2022-08-27] MEDS: Heparin 5,000 UNITS/ML VIAL SC SCH ×3 (09:16→21:44)
[2022-08-27] MEDS: Calcium Acetate 667 MG CAP PO SCH (18:44)
[2022-08-27] MEDS: Simvastatin 10 MG TAB PO SCH (21:42)
[2022-08-28 05:47] LABS: Anion Gap 24 mmol/L (10-20); BUN (Urea Nitrogen) 78 mg/dL (9.8-20.1); Calc. Creatinine Clearance 6 mL/min (70-130); Calcium 9.2 mg/dL (7.8-10.44); Carbon Dioxide 19 mmol/L (23-31); Chloride 98 mmol/L (98-107); Estimated GFR 3; Glucose 116 mg/dL (83-110); Potassium 5.8 mmol/L (3.5-5.1); Sodium 135 mmol/L (136-145)
[2022-08-28] MEDS: Folic Acid/Vit B Comp W-C PO SCH (08:38)
[2022-08-28] MEDS: CO Q-10 CAPSULE 100 MG PO SCH (08:39)
[2022-08-28] MEDS: Aspirin 81 mg Enteric Coated Tablet PO SCH (08:39)
[2022-08-28] MEDS: hydrALAZINE 25 MG TAB PO SCH ×3 (08:39→22:07)
[2022-08-28] MEDS: Carvedilol 6.25 MG TAB PO SCH ×2 (08:39→15:47)
[2022-08-28] MEDS: Heparin 5,000 UNITS/ML VIAL SC SCH ×3 (08:39→22:05)
[2022-08-28] MEDS ORDERED: Dexamethasone 10 MG/ML VIAL SLOW IVP SCH (09:00)
[2022-08-28] MEDS ORDERED: Famotidine 20 MG TAB PO SCH (09:00)
[2022-08-28] MEDS ORDERED: Heparin 10,000 UNITS/ 10 ML VIAL ONE (09:02)
[2022-08-28 10:05] LABS: HBSAg Index 0.29 S/CO (0-0.99); Hep B Core Total Ab Non-Reactive (NonReactive); Hep B Core Total Index 0.08 S/CO (0-0.79); Hep B Surf Ag Non-Reactive S/CO (NonReactive); Hep C IgG Ab Non-Reactive (NonReactive)
[2022-08-28 10:38] LABS: HBSAB Concentration 715.45 mIU/mL; Hep B Surf AB Reactive (NonReactive); Hep C Index 0.04 S/CO (0-0.79)
[2022-08-28] MEDS ORDERED: Benzonatate 100 MG CAP PO PRN (14:54)
[2022-08-28] MEDS ORDERED: guaiFENesin/Codeine 200 mg/20 mg 10 ml Cup PO PRN (14:54)
[2022-08-28] MEDS: Calcium Acetate 667 MG CAP PO SCH (15:49)
[2022-08-28] MEDS: cloNIDine 0.1 MG TAB PO PRN ×2 (18:15)
[2022-08-28] MEDS: Simvastatin 10 MG TAB PO SCH (22:07)
[2022-08-29 05:00] LABS: #Lymphocytes 0.9 thou/uL (1.20-3.40); #Monocytes 0.8 thou/uL (0.11-0.59); #Neutrophils 5.1 thou/uL (1.40-6.50); %Basophils 0.3 % (0.0-1.0); %Eosinophils 0.2 % (0.0-10.0); %Lymphocytes 13.2 % (21.0-51.0); %Monocytes 11.6 % (0.0-10.0); %Neutrophils 74.7 % (42.0-75.0); Hemoglobin 9.4 g/dL (12.0-16.0); Mean Corpuscular HGB CONC 34.1 g/dL (32.0-36.0); Mean Corpuscular Hemoglobin 33.2 pg (27.0-31.0); Mean Corpuscular Volume 97.3 fl (78.0-98.0); Mean Platelet Volume 8.6 fL (7.4-10.4); Platelet Count 292 10x3/uL (130-400); RBC Distribution Width 14.6 % (11.5-14.5); Red Blood Cell (RBC) Count 2.83 mill/uL (4.20-5.40); White Blood Cell (WBC) Count 6.8 10x3/uL (4.8-10.8)
[2022-08-29 05:18] LABS: Anion Gap 18 mmol/L (10-20); BUN (Urea Nitrogen) 45 mg/dL (9.8-20.1); Calc. Creatinine Clearance 9 mL/min (70-130); Carbon Dioxide 24 mmol/L (23-31); Chloride 97 mmol/L (98-107); Estimated GFR 6; Glucose 115 mg/dL (83-110); Potassium 4.1 mmol/L (3.5-5.1); Sodium 135 mmol/L (136-145)
[2022-08-29] MEDS ORDERED: Ergocalciferol 1.25 MG(50,000 UNITS) CAP PO SCH (09:00)
[2022-08-29 13:01] VITALS: BP 141/61; TEMP 99.1
== END 2022-08-29 14:12 | disposition home or self-care (01) | DRG 177 ==
LOC: ERS 15:56 → ERHOLD 23:05 → 2SW 08-27 06:39
PROVIDERS: ADMIT Student in an Organized Health Care Education/Training Program; ATTEND Family Medicine
PROC: 8E0ZXY6 Isolation (ICD-10-PCS; principal; 2022-08-26)
PROC: 5A1D70Z Performance of Urinary Filtration, Intermittent, Less than 6 Hours Per Day (ICD-10-PCS; 2022-08-28)
DX: U07.1 COVID-19 (principal); I50.23 Acute on chronic systolic (congestive) heart failure; N18.6 End stage renal disease; J96.01 Acute respiratory failure with hypoxia; J12.82 Pneumonia due to coronavirus disease 2019; I13.2 Hypertensive heart and chronic kidney disease with heart failure and with stage 5 chronic kidney disease, or end stage renal disease; N25.81 Secondary hyperparathyroidism of renal origin; E11.22 Type 2 diabetes mellitus with diabetic chronic kidney disease; D63.1 Anemia in chronic kidney disease; E87.5 Hyperkalemia; K21.9 Gastro-esophageal reflux disease without esophagitis; E78.00 Pure hypercholesterolemia, unspecified; E11.42 Type 2 diabetes mellitus with diabetic polyneuropathy; Z99.2 Dependence on renal dialysis; Z79.82 Long term (current) use of aspirin; Z79.899 Other long term (current) drug therapy; Z90.710 Acquired absence of both cervix and uterus; Z90.5 Acquired absence of kidney
CPT/HCPCS: 36415; 71045; 80048; 80053; 81003; 81015; 83605; 83880; 84484; 85025; 86704; 93005; J1100; J1644; U0003; U0005

== ENCOUNTER 2022-09-26 11:47 | Emergency (ER) | payer MEDICARE, BC | END 2022-09-26 13:02 | disposition home or self-care (01) | LOC: ERS 11:47 | DX: T82.838A Hemorrhage due to vascular prosthetic devices, implants and grafts, initial encounter (principal); K21.9 Gastro-esophageal reflux disease without esophagitis; E78.00 Pure hypercholesterolemia, unspecified; E11.40 Type 2 diabetes mellitus with diabetic neuropathy, unspecified; I12.0 Hypertensive chronic kidney disease with stage 5 chronic kidney disease or end stage renal disease; E11.22 Type 2 diabetes mellitus with diabetic chronic kidney disease; N18.6 End stage renal disease; Z99.2 Dependence on renal dialysis; Z79.82 Long term (current) use of aspirin; Z79.899 Other long term (current) drug therapy | CPT/HCPCS: 99283 ==

== ENCOUNTER 2023-06-24 09:06 | Outpatient (CLI) | payer MEDICARE, BC | END 2023-06-24 09:07 | disposition home or self-care (01) | LOC: BICMAMMO 09:06 | PROVIDERS: ATTEND Family Medicine | DX: N63.21 Unspecified lump in the left breast, upper outer quadrant (principal) | CPT/HCPCS: 76642; 77065; G0279 ==

== ENCOUNTER 2024-04-11 01:44 | Inpatient (IN) | payer MEDICARE, BC ==
[2024-04-11] MEDS ORDERED: Ondansetron PF 4 MG/2 ML Vial ONE (02:12)
[2024-04-11 03:03] LABS: #Basophils 0.05 10x3/uL (0.0-0.2); %Basophils 0.6 % (0.0-1.0); %Eosinophils 3.1 % (0.0-10.0); %Lymphocytes 11.1 % (21.0-51.0); %Monocytes 8.6 % (0.0-10.0); %Neutrophils 76.3 % (42.0-75.0); Hematocrit 35.4 % (36.0-47.0); Hemoglobin 11.5 g/dL (12.0-16.0); Mean Corpuscular HGB CONC 32.5 g/dL (32.0-36.0); Mean Corpuscular Hemoglobin 33.2 pg (27.0-31.0); Mean Corpuscular Volume 102.3 fL (78.0-98.0); Mean Platelet Volume 12.5 fL (7.4-10.4); Platelet Count 246 10x3/uL (130-400); RBC Distribution Width 16.6 % (11.5-14.5); Red Blood Cell (RBC) Count 3.46 mill/uL (4.20-5.40)
[2024-04-11 03:23] LABS: Troponin I 0.028 ng/mL (< 0.028)
[2024-04-11 03:55] LABS: ALT (SGPT) 7 U/L (8-55); AST (SGOT) 13 U/L (5-34); Albumin 3.4 g/dL (3.4-4.8); Alkaline Phosphatase 83 U/L (40-110); Anion Gap 19 mmol/L (10-20); BUN (Urea Nitrogen) 27 mg/dL (9.8-20.1); Bilirubin, Total 1.2 mg/dL (0.2-1.2); Calc. Creatinine Clearance 0 mL/min (70-130); Calcium 9.5 mg/dL (7.8-10.44); Carbon Dioxide 24 mmol/L (23-31); Chloride 98 mmol/L (98-107); Estimated GFR 8; Glucose 110 mg/dL (83-110); Potassium 3.8 mmol/L (3.5-5.1); Protein, Total 6.4 g/dL (5.8-8.1); Sodium 137 mmol/L (136-145)
[2024-04-11] MEDS ORDERED: Morphine 2 MG/ML VIAL SLOW IVP SCH (06:30)
[2024-04-11] MEDS: Nitroglycerin 0.4 MG TAB (25 Tab Bottle) SL SCH (06:42)
[2024-04-11 06:45] LABS: Troponin I 0.022 ng/mL (< 0.028)
[2024-04-11] MEDS ORDERED: Ondansetron PF 4 MG/2 ML Vial IVP PRN (08:12)
[2024-04-11] MEDS ORDERED: Dextrose 5% in Water 1,000 ML IV PRN (08:33)
[2024-04-11] MEDS ORDERED: Dextrose 50% Abboject 50 ML SYRINGE SLOW IVP PRN (08:33)
[2024-04-11] MEDS ORDERED: Glucagon 1 MG/ML KIT IM PRN (08:33)
[2024-04-11] MEDS ORDERED: Insulin Lispro 100 UNIT/ML 10 ML VIAL SC PRN (08:34)
[2024-04-11 08:42] VITALS: BMI 29.5
[2024-04-11] MEDS ORDERED: Regadenoson 0.4 MG/5 ML SYRINGE ONE (10:04)
[2024-04-11] MEDS: Sacubitril 49 MG/Valsartan 51 MG TABLET PO SCH (11:47)
[2024-04-11] MEDS: Aspirin Chewable 81 MG TAB PO SCH (11:47)
[2024-04-11] MEDS: Pantoprazole DR 40 MG TAB PO SCH (11:47)
[2024-04-11] MEDS: Apixaban 2.5 MG TAB PO SCH (11:47)
[2024-04-11] MEDS ORDERED: Communication Order-Pharmacy FS PRN (17:55)
[2024-04-11] MEDS: Carvedilol 3.125 MG TAB PO SCH (17:55)
[2024-04-11 19:26] LABS: Hematocrit 30.1 % (36.0-47.0); Hemoglobin 9.9 g/dL (12.0-16.0); Platelet Count 202 10x3/uL (130-400)
[2024-04-12 05:19] LABS: #Basophils 0.04 10x3/uL (0.0-0.2); %Basophils 0.5 % (0.0-1.0); %Eosinophils 0.9 % (0.0-10.0); %Lymphocytes 10.7 % (21.0-51.0); %Monocytes 10.6 % (0.0-10.0); Mean Corpuscular HGB CONC 32.3 g/dL (32.0-36.0); Mean Corpuscular Hemoglobin 33.1 pg (27.0-31.0); Mean Corpuscular Volume 102.6 fL (78.0-98.0); Mean Platelet Volume 12.1 fL (7.4-10.4); Platelet Count 205 10x3/uL (130-400); RBC Distribution Width 16.6 % (11.5-14.5); Red Blood Cell (RBC) Count 3.02 mill/uL (4.20-5.40)
[2024-04-12 06:01] LABS: Anion Gap 18 mmol/L (10-20); BUN (Urea Nitrogen) 36 mg/dL (9.8-20.1); Calc. Creatinine Clearance 12 mL/min (70-130); Calcium 9.2 mg/dL (7.8-10.44); Carbon Dioxide 26 mmol/L (23-31); Cardiac Risk 3.8 (Less than 4.5); Chloride 94 mmol/L (98-107); Cholesterol 88 mg/dl (< 200 Desired); Estimated GFR 7; Glucose 102 mg/dL (83-110); HDL Cholesterol 23 mg/dL (>60 Neg Risk); LDL Cholesterol, Calculated 49 mg/dL; Potassium 4.2 mmol/L (3.5-5.1); Sodium 134 mmol/L (136-145); Triglycerides 82 mg/dL (Less than 150)
[2024-04-12 08:38] LABS: HBSAB Concentration 676.21 mIU/mL; Hep B Core Total Ab NONREACTIVE (NonReactive); Hep B Core Total Index 0.12 S/CO (0-0.79); Hep B Surf AB REACTIVE (NonReactive); Hep B Surf Ag NONREACTIVE S/CO (NonReactive); Hep C IgG Ab NONREACTIVE S/CO (NonReactive); Hep C Index 0.07 S/CO (0-0.79)
[2024-04-12] MEDS ORDERED: Heparin 10,000 UNITS/ 10 ML VIAL ONE (08:59)
[2024-04-12] MEDS: Enoxaparin 80 MG (0.8 mL) SYRINGE SC SCH (14:31)
[2024-04-12] MEDS: Albumin 25% 25 GM (100 mL) BOT IVPB SCH (14:32)
[2024-04-12] MEDS: Carvedilol 25 MG TAB PO SCH (17:40)
[2024-04-12] MEDS: Atorvastatin Calcium 40 MG TAB PO SCH (20:47)
[2024-04-12] MEDS: Metoprolol Tartrate 25 MG TAB PO SCH (20:48)
[2024-04-12] MEDS ORDERED: Simvastatin 10 MG TAB PO SCH (21:00)
[2024-04-13 05:13] LABS: #Basophils 0.05 10x3/uL (0.0-0.2); %Basophils 0.8 % (0.0-1.0); %Eosinophils 2.3 % (0.0-10.0); %Lymphocytes 10.8 % (21.0-51.0); %Neutrophils 72.9 % (42.0-75.0); Hematocrit 29.6 % (36.0-47.0); Hemoglobin 9.7 g/dL (12.0-16.0); Mean Corpuscular HGB CONC 32.8 g/dL (32.0-36.0); Mean Corpuscular Hemoglobin 33.7 pg (27.0-31.0); Mean Corpuscular Volume 102.8 fL (78.0-98.0); Mean Platelet Volume 12.1 fL (7.4-10.4); Platelet Count 212 10x3/uL (130-400); RBC Distribution Width 16.3 % (11.5-14.5); Red Blood Cell (RBC) Count 2.88 mill/uL (4.20-5.40)
[2024-04-13 05:27] LABS: Anion Gap 16 mmol/L (10-20); BUN (Urea Nitrogen) 26 mg/dL (9.8-20.1); Calc. Creatinine Clearance 14 mL/min (70-130); Calcium 9.3 mg/dL (7.8-10.44); Carbon Dioxide 27 mmol/L (23-31); Chloride 99 mmol/L (98-107); Estimated GFR 8; Glucose 129 mg/dL (83-110); Potassium 4.5 mmol/L (3.5-5.1); Sodium 137 mmol/L (136-145)
[2024-04-13] MEDS ORDERED: Enoxaparin 80 MG (0.8 mL) SYRINGE SC SCH (09:00)
[2024-04-13] MEDS: Sacubitril 49 MG/Valsartan 51 MG TABLET PO SCH (10:25)
[2024-04-14 04:34] LABS: #Basophils 0.04 10x3/uL (0.0-0.2); %Basophils 0.6 % (0.0-1.0); %Eosinophils 4.9 % (0.0-10.0); %Lymphocytes 12.8 % (21.0-51.0); %Monocytes 10.8 % (0.0-10.0); %Neutrophils 70.7 % (42.0-75.0); Hemoglobin 10.7 g/dL (12.0-16.0); Mean Corpuscular HGB CONC 33.4 g/dL (32.0-36.0); Mean Corpuscular Hemoglobin 32.9 pg (27.0-31.0); Mean Corpuscular Volume 98.5 fL (78.0-98.0); Platelet Count 232 10x3/uL (130-400); RBC Distribution Width 16.4 % (11.5-14.5); Red Blood Cell (RBC) Count 3.25 mill/uL (4.20-5.40)
[2024-04-14 05:31] LABS: Anion Gap 19 mmol/L (10-20); BUN (Urea Nitrogen) 40 mg/dL (9.8-20.1); Calc. Creatinine Clearance 11 mL/min (70-130); Calcium 9.7 mg/dL (7.8-10.44); Carbon Dioxide 23 mmol/L (23-31); Chloride 98 mmol/L (98-107); Estimated GFR 7; Glucose 105 mg/dL (83-110); Potassium 4.5 mmol/L (3.5-5.1); Sodium 135 mmol/L (136-145)
[2024-04-14] MEDS ORDERED: Heparin 10,000 UNITS/ 10 ML VIAL ONE (08:36)
[2024-04-14] MEDS ORDERED: Enoxaparin 80 MG (0.8 mL) SYRINGE SC SCH (09:00)
[2024-04-14] MEDS: Activase 2 MG VIAL CATH SCH (10:37)
[2024-04-14] MEDS: Sterile Water 10 ML VIAL IVP SCH (10:37)
[2024-04-14] MEDS ORDERED: Communication Order-Pharmacy FS SCH (17:30)
[2024-04-15 05:44] LABS: #Basophils 0.04 10x3/uL (0.0-0.2); %Basophils 0.6 % (0.0-1.0); %Eosinophils 3.4 % (0.0-10.0); %Lymphocytes 9.3 % (21.0-51.0); %Monocytes 12.8 % (0.0-10.0); %Neutrophils 73.6 % (42.0-75.0); Hematocrit 30.6 % (36.0-47.0); Hemoglobin 10.1 g/dL (12.0-16.0); Mean Corpuscular Hemoglobin 33.3 pg (27.0-31.0); Mean Platelet Volume 11.7 fL (7.4-10.4); Platelet Count 253 10x3/uL (130-400); RBC Distribution Width 16.6 % (11.5-14.5); Red Blood Cell (RBC) Count 3.03 mill/uL (4.20-5.40)
[2024-04-15 06:05] LABS: Albumin 3.5 g/dL (3.4-4.8); Anion Gap 16 mmol/L (10-20); BUN (Urea Nitrogen) 30 mg/dL (9.8-20.1); BUN/Creatinine Ratio 6.12; Calc. Creatinine Clearance 13 mL/min (70-130); Calcium 9.6 mg/dL (7.8-10.44); Carbon Dioxide 25 mmol/L (23-31); Chloride 100 mmol/L (98-107); Estimated GFR 9; Glucose 128 mg/dL (83-110); Phosphorus 3.7 mg/dL (2.3-4.7); Potassium 4.6 mmol/L (3.5-5.1); Sodium 136 mmol/L (136-145)
[2024-04-15] MEDS: Acetaminophen 325 MG TAB PO PRN (10:02)
[2024-04-15] MEDS ORDERED: Adenosine 6 mg (2 mL) VIAL ONE (10:37)
[2024-04-15] MEDS ORDERED: Nitroglycerin 50 MG/250 ML BOT 0 ML ONE (10:38)
[2024-04-15] MEDS ORDERED: Heparin 10,000 UNITS/ 10 ML VIAL ONE (10:38)
[2024-04-15] MEDS ORDERED: Verapamil 5 MG/2 ML VIAL ONE (10:38)
[2024-04-15] MEDS ORDERED: Iopamidol 370 76% 100 ML VIAL ONE (11:16)
[2024-04-15] MEDS ORDERED: fentaNYL 50 mcg/mL 1 mL Vial ONE (13:51)
[2024-04-15] MEDS ORDERED: Midazolam HCl 2 mg/2 ml Vial ONE (13:52)
[2024-04-15] MEDS ORDERED: Sodium Chloride 0.9% 200 ML IV PRN (18:17)
[2024-04-16 05:50] LABS: #Basophils 0.04 10x3/uL (0.0-0.2); %Basophils 0.8 % (0.0-1.0); %Eosinophils 5.3 % (0.0-10.0); %Lymphocytes 12.6 % (21.0-51.0); %Neutrophils 67.9 % (42.0-75.0); Hemoglobin 10.2 g/dL (12.0-16.0); Mean Corpuscular HGB CONC 32.9 g/dL (32.0-36.0); Mean Corpuscular Hemoglobin 32.3 pg (27.0-31.0); Mean Corpuscular Volume 98.1 fL (78.0-98.0); Mean Platelet Volume 11.4 fL (7.4-10.4); Platelet Count 253 10x3/uL (130-400); RBC Distribution Width 16.6 % (11.5-14.5); Red Blood Cell (RBC) Count 3.16 mill/uL (4.20-5.40)
[2024-04-16 06:07] LABS: Albumin 3.3 g/dL (3.4-4.8); Anion Gap 18 mmol/L (10-20); BUN (Urea Nitrogen) 40 mg/dL (9.8-20.1); Calc. Creatinine Clearance 12 mL/min (70-130); Calcium 9.8 mg/dL (7.8-10.44); Carbon Dioxide 24 mmol/L (23-31); Chloride 97 mmol/L (98-107); Estimated GFR 8; Glucose 114 mg/dL (83-110); Phosphorus 4.3 mg/dL (2.3-4.7); Potassium 4.5 mmol/L (3.5-5.1); Sodium 134 mmol/L (136-145)
[2024-04-16] MEDS ORDERED: Heparin 10,000 UNITS/ 10 ML VIAL ONE (09:56)
[2024-04-16 19:28] VITALS: TEMP 97.4
[2024-04-17 01:44] VITALS: BP 111/57
== END 2024-04-17 02:18 | disposition short-term general hospital (02) | DRG 286 ==
LOC: ERS 01:44 → OBS 06:21 → OBSVTOIN 04-12 12:17
PROVIDERS: ADMIT Internal Medicine; ATTEND Internal Medicine
PROC: 30233J1 Transfusion of Nonautologous Serum Albumin into Peripheral Vein, Percutaneous Approach (ICD-10-PCS; principal; 2024-04-12)
PROC: 5A1D70Z Performance of Urinary Filtration, Intermittent, Less than 6 Hours Per Day (ICD-10-PCS; 2024-04-12)
PROC: 4A023N7 Measurement of Cardiac Sampling and Pressure, Left Heart, Percutaneous Approach (ICD-10-PCS; 2024-04-15)
PROC: B2111ZZ Fluoroscopy of Multiple Coronary Arteries using Low Osmolar Contrast (ICD-10-PCS; 2024-04-15)
DX: I25.10 Atherosclerotic heart disease of native coronary artery without angina pectoris (principal); N18.6 End stage renal disease; I50.42 Chronic combined systolic (congestive) and diastolic (congestive) heart failure; E87.1 Hypo-osmolality and hyponatremia; I13.2 Hypertensive heart and chronic kidney disease with heart failure and with stage 5 chronic kidney disease, or end stage renal disease; Z99.2 Dependence on renal dialysis; E11.22 Type 2 diabetes mellitus with diabetic chronic kidney disease; K21.9 Gastro-esophageal reflux disease without esophagitis; D63.1 Anemia in chronic kidney disease; I42.0 Dilated cardiomyopathy; E78.5 Hyperlipidemia, unspecified; I35.0 Nonrheumatic aortic (valve) stenosis; Z90.710 Acquired absence of both cervix and uterus; Z88.5 Allergy status to narcotic agent; Z88.8 Allergy status to other drugs, medicaments and biological substances; Z79.82 Long term (current) use of aspirin; Z79.899 Other long term (current) drug therapy
CPT/HCPCS: 36415; 36416; 71045; 78452; 80048; 80053; 80061; 80069; 83735; 83880; 84484; 85025; 86704; 86706; 86803; 87340; 90935; 93005; 93010; 93017; 93306; 93454; 93458; 94760; 96374; 97139; A9500; C1769; C1887; G0257; G0378; J0153; J1644; J2250; J2272; J2405; J2785; J2997; J3010; P9047; Q9967